=== PATIENT | female | born 1960 | race African-American/Black ===

== ENCOUNTER → 2016-08-07 | Outpatient (CLI) | payer OTHER ==
[~2016-08-07] MED LIST: AMLO5TAB2 PO; LOSA50TA PO
[2016-08-07 13:00] LABS: ALKALINE PHOSPHATASE 104 U/L (45-117); ALT (GPT) 22 U/L (10-53); ANION GAP 6 MEQ/L (5-15); AST (GOT) 9 U/L (15-37); BICARBONATE 29.3 MEQ/L (21.0-32.0); BLOOD UREA NITROGEN 14 MG/DL (7-18); CHLORIDE 104 MEQ/L (98-107); GLOMERULAR FILTRATION RATE 77 ML/MIN (>89); GLUCOSE,FASTING 90 MG/DL (74-99); HDL CHOLESTEROL 49.4 MG/DL (40.0-60.0); LDL CHOLESTEROL 149 MG/DL (0-99); POTASSIUM 3.8 MEQ/L (3.5-5.1); SODIUM (NA) 139 MEQ/L (136-145); TOTAL BILIRUBIN ADULT 0.5 MG/DL (0.2-1.0)
== END ==
LOC: CLAB 12:14
PROVIDERS: ATTEND Nurse Practitioner Family
DX: E78.5 Hyperlipidemia, unspecified (principal); I10 Essential (primary) hypertension; H92.01 Otalgia, right ear
CPT/HCPCS: 36415; 80053; 80061

== ENCOUNTER 2017-02-05 01:45 | Emergency (ER) | payer OTHER ==
[~2017-02-05] VITALS: Ht 175.3 cm; Wt 88.0 kg
[2017-02-05 01:50] VITALS: BP 226/91; PULSE 84; RESP 16; TEMP 98.6; O2SAT 95
[2017-02-05 02:09] VITALS: BP 221/101; PULSE 73; RESP 16; O2SAT 96
[2017-02-05] MEDS ORDERED: OMEP20TA PO (02:11)
[2017-02-05] MEDS ORDERED: NITR1SUB3 SL (02:11)
--- NOTE | 2017-02-05 02:19 | PD ---
HPI Chief Complaint: Foreign Body Time Seen by Provider: 02:14 Travel History International Travel<30 days: No Contact w/Intl Traveler<30days: No Traveled to known affect area: No History of Present Illness HPI 57-year-old female with history of hypertension here for evaluation of foreign body sensation in her right ear. The patient reports having this sensation for the last 6 months. She was evaluated by her primary care physician as well as ENT specialist Dr. Alfred who both told her that there is nothing in her ear. She states that over the last couple of days and especially tonight it feels as though there is something crawling in her ear. Of note she is supposed to be on amlodipine, however ran out of this medication 3 weeks ago. She is hypertensive in triage. She denies headache. No chest pain or dyspnea. No paresthesias or motor deficits. She is adamant that there is something in her ear and wants an x-ray for it. PFSH Past Medical History Asthma: No Chest Pain: Yes COPD: No Diabetes: No Diminished Hearing: No GERD: Yes Hypertension: Yes Immunizations Current: No Thyroid Disease: No Tetanus Vaccination: < 5 Years Influenza Vaccination: Yes ?: Not Menopausal: Yes Past Surgical History Surgical History: No Previous Surgery Social History Alcohol Use: Yes (OCC.) Tobacco Use: No Substance Use: No Allergies-Medications (Allergen,Severity, Reaction): Coded Allergies: No Known Allergies (Verified , 02/05/17) Reported Meds & Prescriptions Reported Meds & Active Scripts Active Amlodipine (Amlodipine Besylate) 5 Mg Tab 5 Mg PO DAILY Losartan (Losartan Potassium) 50 Mg Tab 50 Mg PO BID Reported Omeprazole 20 Mg Tab 20 Mg PO DAILY Nitroglycerin SL (Nitroglycerin) 0.4 Mg Subl 0.4 Mg SL DIRECTED PRN ONE TABLET UNDER THE TONGUE NEEDED FOR CHEST PAIN, MAY REPEAT EVERY FIVE MINUTES FOR A TOTAL OF 3 DOSES OR CALL 911 IF NO RELIEF Review of Systems Except as stated in HPI: all other systems reviewed are Neg Physical Exam Narrative GENERAL: Well-developed, well-nourished, comfortable, no apparent distress. SKIN: Focused skin assessment warm/dry. No rash. No pallor. HEAD: Atraumatic. Normocephalic. EYES: Pupils equal and round. No scleral icterus. No injection or drainage. ENT: Mucous membranes pink and moist. Bilateral tympanic membranes and external auditory canals are normal. There are no ear foreign bodies bilaterally. No perforations. NECK: Trachea midline. No JVD. CARDIOVASCULAR: Regular rate and rhythm. RESPIRATORY: No accessory muscle use. Clear to auscultation. Breath sounds equal bilaterally. GASTROINTESTINAL: Abdomen soft, non-tender, nondistended. MUSCULOSKELETAL: No obvious deformities. No clubbing. No cyanosis. No edema. NEUROLOGICAL: Awake and alert. No obvious cranial nerve deficits. Motor grossly within normal limits. Normal speech. PSYCHIATRIC: Appropriate mood and affect; insight and judgment normal. Data Data Last Documented VS Vital Signs Date Time Temp Pulse Resp B/P Pulse Ox O2 Delivery O2 Flow Rate FiO2 02/05/17 02:51 77 16 212/102 02/05/17 02:09 96 Room Air 02/05/17 01:[address] Brain W/O Iv Contrast(Rout) (02/05/17 ) Amlodipine (Norvasc) (02/05/17 02:30) Acetaminophen (Tylenol) (02/05/17 03:00) MDM Medical Decision Making Medical Screen Exam Complete: Yes Emergency Medical Condition: Yes Differential Diagnosis Tinnitus, foreign body/foreign body sensation, otitis media, otitis externa Narrative Course Initial vital signs show heart rate 84, blood pressure 226/91, pulse ox 95% on room air. CT head shows no acute intracranial disease. On physical exam there is no ear foreign body. Bilateral external auditory canals and tympanic members are normal. No signs of perforation. Patient was given a dose of amlodipine as well as a dose of Tylenol. Patient was made aware of all findings. On reassessment she is again resting comfortably. There are no focal neurologic findings on exam. She is not displaying any signs or symptoms of hypertensive crisis. Her symptoms have been going on for 6 months. I told her that she could be experiencing tenderness secondary to her elevated blood pressure. She does take aspirin daily, and he told her to stop doing so to see if her tinnitus would improve. She is stable for discharge home with outpatient follow-up with her primary care physician this week. She was informed on when to return to the emergency department. She verbalizes understanding and agreement with plan. Diagnosis Primary Impression: Tinnitus Qualified Code: H93.11 - Tinnitus, right Additional Impression: Elevated blood pressure reading Referrals: Primary Care Physician 3 days Additional Instructions: Follow-up with your primary care physician this week. Return to the emergency department for worsening symptoms or any other concerns. Scripts Amlodipine 10 Mg Tab10 Mg PO DAILY #30 TAB Ref 0 Prov:Burak Shelby MD 02/05/17 Disposition: 01 DISCHARGE HOME Condition: Stable Burak Shelby MD Feb 05, 2017 02:19
[2017-02-05 02:51] VITALS: BP 212/102; PULSE 77; RESP 16
[2017-02-05] MEDS ORDERED: ACETAMINOPHEN 325 MG TAB PO ONE (03:00)
--- NOTE | 2017-02-05 03:33 | RADRPT ---
EXAM DATE/TIME: 02/05/2017 02:28 [facility] COMPARISON: No previous studies available for comparison. INDICATIONS : Right ear and head pain. RADIATION DOSE: 56.35 CTDIvol (mGy) MEDICAL HISTORY : None SURGICAL HISTORY : None. ENCOUNTER: Initial ACUITY: 4 - 6 months PAIN SCALE: 4/10 LOCATION: Right cranial ear TECHNIQUE: Multiple contiguous axial images were obtained of the head. Using automated exposure control and adj ustment of the mA and/or kV according to patient size, radiation dose was kept as low as reasonably a chievable to obtain optimal diagnostic quality images. DICOM format image data is available electro nically for review and comparison. FINDINGS: CEREBRUM: The ventricles are normal for age. No evidence of midline shift, mass lesion, hemorrhage or acute in farction. No extra-axial fluid collections are seen. POSTERIOR FOSSA: The cerebellum and brainstem are intact. The 4th ventricle is midline. The cerebellopontine angle i s unremarkable. EXTRACRANIAL: The visualized portion of the orbits is intact. SKULL: The calvaria is intact. No evidence of skull fracture. CONCLUSION: No acute intracranial disease. Flavio Madden MD on February 05, 2017 at 3:30 Board Certified Radiologist. This report was verified electronically.
[2017-02-05] MEDS ORDERED: AMLO10TA2 PO (03:40)
[2017-02-05 03:43] VITALS: BP 212/97; PULSE 97; RESP 16; O2SAT 99
== END 2017-02-05 03:50 | disposition home or self-care (01) ==
LOC: NEPE 01:45
DX: H93.11 Tinnitus, right ear (principal); Z79.82 Long term (current) use of aspirin; I10 Essential (primary) hypertension; Z91.14 Patient's other noncompliance with medication regimen
CPT/HCPCS: 70450

== ENCOUNTER 2017-03-10 20:27 | Emergency (ER) | payer OTHER ==
[~2017-03-10] VITALS: Ht 165.1 cm; Wt 95.0 kg
[~2017-03-10 20:27] MED LIST changes: +AMLO10TA2 PO; +NITR1SUB3 SL; +OMEP20TA PO
[2017-03-10] MEDS ORDERED: SODIUM CHLORIDE 0.9% FLUSH 10 ML FLUSH IVF PRN (20:30)
[2017-03-10] MEDS ORDERED: ASPIRIN 81 MG CHEW TAB PO ONE (20:30)
[2017-03-10] MEDS ORDERED: MORPHINE SULFATE 4 MG/ML INJ IV PUSH ONE (20:30)
[2017-03-10] MEDS: NITROGLYCERIN 0.4 MG SL 25 TABS/BTL SL SCH ×3 (20:39→20:49)
[2017-03-10 20:44] VITALS: BP 149/72; PULSE 72; RESP 18; O2SAT 95
[2017-03-10 20:45] VITALS: BP_SYST 149; BP_SYST 177; BP_DIAS 72; BP_DIAS 84; PULSE 65; PULSE 72; RESP 18; TEMP 98.1; O2SAT 95; O2SAT 98
--- NOTE | 2017-03-10 20:50 | PD ---
HPI Chief Complaint: Chest Pain Time Seen by Provider: 20:29 Travel History International Travel<30 days: No Contact w/Intl Traveler<30days: No History of Present Illness HPI Patient is a 57-year-old obese female with history of HTN who presents the emergency department with complaint of chest pain. Patient states that at around 5:30 PM she developed a dull substernal ache/pressure. This does not radiate. She does have some associated shortness of breath but no cough, chest congestion. Denies any lightheadedness, dizziness, diaphoresis, nausea or vomiting. The chest pain has been constant since onset at 5:30 PM. Pain is 6 out of 10 at this time. Patient did take 3 sublingual nitroglycerin prior to arrival. She notes that she's been having this chest pain intermittently for the last 1-2 years. She states that movement, particularly movement of the left shoulder seems to reproduce the pain. She has been followed with Dr. Ruiz, who did a cardiac stress test approximately 9010 months ago that was reportedly normal per patient. [facility]LY [facility] Past Medical History Asthma: No Chest Pain: Yes COPD: No Diabetes: No Diminished Hearing: No GERD: Yes Hypertension: Yes Immunizations Current: No Thyroid Disease: No Menopausal: Yes Social History Alcohol Use: Yes (OCC.) Tobacco Use: No Substance Use: No Allergies-Medications (Allergen,Severity, Reaction): Coded Allergies: No Known Allergies (Verified , 02/05/17) Reported Meds & Prescriptions Reported Meds & Active Scripts Active Amlodipine (Amlodipine Besylate) 10 Mg Tab 10 Mg PO DAILY Amlodipine (Amlodipine Besylate) 5 Mg Tab 5 Mg PO DAILY Losartan (Losartan Potassium) 50 Mg Tab 50 Mg PO BID Reported Omeprazole 20 Mg Tab 20 Mg PO DAILY Nitroglycerin SL (Nitroglycerin) 0.4 Mg Subl 0.4 Mg SL DIRECTED PRN ONE TABLET UNDER THE TONGUE NEEDED FOR CHEST PAIN, MAY REPEAT EVERY FIVE MINUTES FOR A TOTAL OF 3 DOSES OR CALL 911 IF NO RELIEF Review of Systems Except as stated in HPI: all other systems reviewed are Neg Physical Exam Narrative GENERAL: Morbidly obese female appearing older than stated age , in no acute distress SKIN: Focused skin assessment warm/dry. HEAD: Normocephalic. EYES: No scleral icterus. No injection or drainage. ENT: Mucous membranes pink and moist. NECK: Supple CARDIOVASCULAR: Regular rate and rhythm. No murmur appreciated. No reproducible tenderness to palpation of the chest wall. RESPIRATORY: No accessory muscle use. Clear to auscultation. Breath sounds equal bilaterally. GASTROINTESTINAL: Abdomen soft, non-tender, nondistended. Morbidly obese MUSCULOSKELETAL: No obvious deformities. No edema. NEUROLOGICAL: Awake and alert. Motor grossly within normal limits. Normal speech. PSYCHIATRIC: Appropriate mood and affect; insight and judgment normal. Data Data Last Documented VS Vital Signs Date Time Temp Pulse Resp B/P Pulse Ox O2 Delivery O2 Flow Rate FiO2 03/10/17 23:06 60 18 190/87 99 Room Air 03/10/17 20:45 98.1 Orders Electrocardiogram (03/10/17 20:29) Basic Metabolic Panel (Bmp) (03/10/17 20:29) Ckmb (Isoenzyme) Profile (03/10/17 20:29) Complete Blood Count With Diff (03/10/17 20:29) Magnesium (Mg) (03/10/17 20:29) Prothrombin Time / Inr (Pt) (03/10/17 20:29) Act Partial Throm Time (Ptt) (03/10/17 20:29) Troponin I (03/10/17 20:29) Chest, Single Ap (03/10/17 20:29) Ecg Monitoring (03/10/17 20:29) Bilateral Bp Monitoring (03/10/17 20:29) Iv Access Insert/Monitor (03/10/17 20:29) Oximetry (03/10/17 20:29) Aspirin Chew (Aspirin Chew) (03/10/17 20:30) Morphine Inj (Morphine Inj) (03/10/17 20:30) Sodium Chloride 0.9% Flush (Ns Flush) (03/10/17 20:30) Nitroglycerin Sl (Nitrostat Sl) (03/10/17 20:30) CKMB (03/10/17 20:30) CKMB% (03/10/17 20:30) Troponin I (03/10/17 23:30) Electrocardiogram (03/10/17 23:30) Labs Laboratory Tests Test 03/10/17 03/10/17 20:30 23:34 White Blood Count 4.8 TH/MM3 Red Blood Count 4.13 MIL/MM3 Hemoglobin 12.7 GM/DL Hematocrit 37.7 % Mean Corpuscular Volume 91.3 FL Mean Corpuscular Hemoglobin 30.9 PG Mean Corpuscular Hemoglobin 33.8 % Concent Red Cell Distribution Width 14.0 % Platelet Count 173 TH/MM3 Mean Platelet Volume 10.4 FL Neutrophils (%) (Auto) 41.1 % Lymphocytes (%) (Auto) 47.0 % Monocytes (%) (Auto) 9.3 % Eosinophils (%) (Auto) 2.0 % Basophils (%) (Auto) 0.6 % Neutrophils # (Auto) 2.0 TH/MM3 Lymphocytes # (Auto) 2.3 TH/MM3 Monocytes # (Auto) 0.4 TH/MM3 Eosinophils # (Auto) 0.1 TH/MM3 Basophils # (Auto) 0.0 TH/MM3 CBC Comment DIFF FINAL Differential Comment Prothrombin Time 10.8 SEC Prothromb Time International 1.0 RATIO Ratio Activated Partial 25.8 SEC Thromboplast Time Sodium Level 139 MEQ/L Potassium Level 3.6 MEQ/L Chloride Level 105 MEQ/L Carbon Dioxide Level 25.7 MEQ/L Anion Gap 8 MEQ/L Blood Urea Nitrogen 16 MG/DL Creatinine 0.99 MG/DL Estimat Glomerular Filtration 70 ML/MIN Rate Random Glucose 97 MG/DL Calcium Level 8.3 MG/DL Magnesium Level 2.1 MG/DL Total Creatine Kinase 147 U/L Creatine Kinase MB 0.9 NG/ML Troponin I LESS THAN 0.02 LESS THAN 0.02 NG/ML NG/ML MDM Medical Decision Making Medical Screen Exam Complete: Yes Emergency Medical Condition: Yes Medical Record Reviewed: Yes Differential Diagnosis 57-year-old obese female with history of HTN, HLD here with complaint of substernal chest pressure with shortness of breath since 5:30 PM. Differential includes ACS, atypical chest pain, anxiety, GERD, musculoskeletal, and less likely PE or dissection. Narrative Course Patient placed on monitor, IV established and blood obtained. A twelve-lead EKG shows sinus rhythm with T-wave inversions in 3, V1. This is similar to patient's previous EKG. Patient was given aspirin, morphine, nitroglycerin. Portable chest x-ray obtained that by my read shows no acute abnormalities. CBC , BMP, magnesium, CK-MB, troponin, coags and unremarkable. After nitroglycerin 2 patient is pain-free in the chest and only has pain with movement of the left arm. Discussed admission for stress testing, serial cardiac enzymes but patient would really rather go home. Therefore we compromised and have her stay for delta 3 hour troponin and EKG. Delta 3 hour EKG is unchanged, troponin remains negative. Patient reassured, discharged home and instructed to follow-up with Dr. Ruiz as an outpatient. Diagnosis Primary Impression: Atypical chest pain Referrals: Ross Ruiz MD 1 day Additional Instructions: Follow-up with Dr. Ruiz as an outpatient as discussed. Call Dr. Ruiz's office tomorrow and inform them of your emergency department visit, and need for follow-up. EKG 2, cardiac enzymes 2 today were normal. Med/Other Pt SpecificInfo: No Change to Meds Disposition: 01 DISCHARGE HOME Condition: Stable Sammi Mcmanus MD Mar 10, 2017 20:50
[2017-03-10 21:00] VITALS: BP 145/70; PULSE 71; RESP 18; O2SAT 97
[2017-03-10 21:04] LABS: BASOPHIL % 0.6 % (0.0-2.0); EOSINOPHIL # 0.1 TH/MM3 (0-0.4); HEMATOCRIT 37.7 % (35.0-46.0); HEMO FLAGS DIFF FINAL; LYMPHOCYTE # 2.3 TH/MM3 (1.0-4.8); MEAN CELL VOLUME 91.3 FL (80.0-100.0); MEAN CORPUSCULAR HEMOGLOBIN 30.9 PG (27.0-34.0); MEAN CORPUSCULAR HGB CONC 33.8 % (32.0-36.0); MONO % 9.3 % (0.0-8.0); NEUT % 41.1 % (16.0-70.0); PLATELET COUNT 173 TH/MM3 (150-450); RED BLOOD COUNT 4.13 MIL/MM3 (4.00-5.30); WHITE BLOOD COUNT 4.8 TH/MM3 (4.0-11.0)
[2017-03-10 21:18] LABS: ANION GAP 8 MEQ/L (5-15); BICARBONATE 25.7 MEQ/L (21.0-32.0); BLOOD UREA NITROGEN 16 MG/DL (7-18); CHLORIDE 105 MEQ/L (98-107); GLOMERULAR FILTRATION RATE 70 ML/MIN (>89); MAGNESIUM 2.1 MG/DL (1.5-2.5); POTASSIUM 3.6 MEQ/L (3.5-5.1); SODIUM (NA) 139 MEQ/L (136-145)
[2017-03-10 21:20] LABS: APTT (PATIENT) 25.8 SEC (24.3-30.1); PROTHROMBIN TIME - PATIENT 10.8 SEC (9.8-11.6)
--- NOTE | 2017-03-10 21:21 | RADRPT ---
EXAM DATE/TIME: 03/10/2017 20:48 [facility] COMPARISON: CHEST SINGLE AP, March 02, 2015, 8:06. INDICATIONS : Chest pain. MEDICAL HISTORY : None. SURGICAL HISTORY : None. ENCOUNTER: Initial ACUITY: 1 day PAIN SCORE: 7/10 LOCATION: Bilateral chest FINDINGS: A single view of the chest demonstrates the lungs to be symmetrically aerated without evidence of mas s, infiltrate or effusion. Mild basal atelectasis. The cardiomediastinal contours are mildly prominen t. Osseous structures are intact. CONCLUSION: 1. Stable cardiomegaly. Mild basal atelectasis. Poncho Alva MD on March 10, 2017 at 21:19 Board Certified Radiologist. This report was verified electronically.
[2017-03-10 21:23] LABS: CREATINE KINASE 147 U/L (26-192)
[2017-03-10 21:35] LABS: CKMB 0.9 NG/ML (0.5-3.6)
[2017-03-10 22:25] VITALS: BP 155/75; PULSE 62; RESP 18; O2SAT 98
[2017-03-10 23:06] VITALS: BP 190/87; PULSE 60; RESP 18; O2SAT 99
[2017-03-11 01:07] VITALS: BP 155/75
--- NOTE | 2017-03-11 16:27 | EKG ---
Date Performed: 03/10/2017 Time Performed: 20:20:29 PTAGE: 57 years EKG: Sinus rhythm MODERATE INTRAVENTRICULAR CONDUCTION DELAY VOLTAGE CRITERIA FOR LVH ABNORMAL ECG PREVIOUS TRACING 03/02/2015 07.14.42 Since previous tracing, no significant change noted DOCTOR: Kailash Jalloh Interpretating Date/Time 03/11/2017 16:25:59
--- NOTE | 2017-03-11 16:27 | EKG ---
Date Performed: 03/10/2017 Time Performed: 23:38:16 PTAGE: 57 years EKG: SINUS BRADYCARDIA WITH SINUS ARRHYTHMIA MODERATE INTRAVENTRICULAR CONDUCTION DELAY VOLTAGE CRITERIA FOR LVH ABNORMAL ECG PREVIOUS TRACING : 03/10/2017 20.20 Since previous tracing, no significant change noted DOCTOR: Kailash Jalloh Interpretating Date/Time 03/11/2017 16:26:09
[2017-05-16] MEDS ORDERED: OMEP20TA PO ×2 (13:21→13:44)
[2017-05-16] MEDS ORDERED: LOSA50TA PO (13:39)
[2017-05-16] MEDS ORDERED: AMLO5TAB2 PO (13:39)
[2017-05-16] MEDS ORDERED: KETOC2%T TOPICAL (13:52)
[2017-05-17] MEDS ORDERED: ATOR20TA15 PO (15:26)
== END 2017-03-11 01:31 | disposition home or self-care (01) ==
LOC: NEPE 20:27
DX: R07.89 Other chest pain (principal); I10 Essential (primary) hypertension; K21.9 Gastro-esophageal reflux disease without esophagitis
CPT/HCPCS: 71010; 80048; 82550; 82552; 83735; 84484; 85025; 85610; 85730; 93005; 96374; 99285; J2270

== ENCOUNTER 2017-05-10 03:39 | Observation (INO) | payer OTHER ==
[~2017-05-10] VITALS: Ht 167.6 cm; Wt 100.0 kg
[2017-05-10] VITALS (7 sets, daily range): BP systolic 179–198; BP diastolic 87–97; PULSE 60–76; RESP 16–20; TEMP 97.6–98.2; O2SAT 96–100
[2017-05-10] MEDS ORDERED: SODIUM CHLORIDE 0.9% FLUSH 10 ML FLUSH IVF PRN (04:00)
--- NOTE | 2017-05-10 04:18 | RADRPT ---
EXAM DATE/TIME: 05/10/2017 03:59 [facility] COMPARISON: CHEST SINGLE AP, March 10, 2017, 20:48. INDICATIONS : Chest pain. MEDICAL HISTORY : Hypertension. SURGICAL HISTORY : None. ENCOUNTER: Initial ACUITY: 1 day PAIN SCORE: 6/10 LOCATION: Bilateral chest FINDINGS: A single view of the chest demonstrates the lungs to be symmetrically aerated without evidence of mas s, infiltrate or effusion. The cardiomediastinal contours are unremarkable. Osseous structures are intact. CONCLUSION: No acute disease. Robert Morin Jr., MD on May 10, 2017 at 4:16 Board Certified Radiologist. This report was verified electronically.
[2017-05-10 04:43] LABS: AUTOMATED NEUTROPHIL # 3.2 TH/MM3 (1.8-7.7); BASOPHIL % 0.4 % (0.0-2.0); EOSINOPHIL # 0.1 TH/MM3 (0-0.4); EOSINOPHIL % 1.2 % (0.0-4.0); HEMATOCRIT 36.2 % (35.0-46.0); HEMO FLAGS DIFF FINAL; LYMPH % 39.1 % (9.0-44.0); LYMPHOCYTE # 2.4 TH/MM3 (1.0-4.8); MEAN CELL VOLUME 91.9 FL (80.0-100.0); MEAN CORPUSCULAR HEMOGLOBIN 31.4 PG (27.0-34.0); MEAN CORPUSCULAR HGB CONC 34.2 % (32.0-36.0); MONO % 7.3 % (0.0-8.0); PLATELET COUNT 165 TH/MM3 (150-450); RED BLOOD COUNT 3.93 MIL/MM3 (4.00-5.30); RED CELL DISTRIBUTION WIDTH 14.6 % (11.6-17.2); WHITE BLOOD COUNT 6.2 TH/MM3 (4.0-11.0)
[2017-05-10 04:53] LABS: PROTHROMBIN TIME - PATIENT 10.8 SEC (9.8-11.6)
[2017-05-10 04:57] LABS: ALT (GPT) 27 U/L (10-53); ANION GAP 6 MEQ/L (5-15); AST (GOT) 14 U/L (15-37); BICARBONATE 26.6 MEQ/L (21.0-32.0); BLOOD UREA NITROGEN 14 MG/DL (7-18); CHLORIDE 108 MEQ/L (98-107); GLOMERULAR FILTRATION RATE 70 ML/MIN (>89); POTASSIUM 3.4 MEQ/L (3.5-5.1); SODIUM (NA) 141 MEQ/L (136-145)
--- NOTE | 2017-05-10 04:58 | PD ---
HPI Chief Complaint: Chest Pain Time Seen by Provider: 03:56 Travel History International Travel<30 days: No Contact w/Intl Traveler<30days: No Traveled to known affect area: No History of Present Illness HPI Patient is a 57-year-old female who presents to emergency room with complaints of chest pain. Patient reports that she was working tonight, reports that she began to have chest pain which started around 3:30 AM. She reports that she has a pressure to her left chest, reports that symptoms are nonradiating in nature. Patient reports that she has nausea with no vomiting or diaphoresis or symptoms. It's that she is currently being treated for hypertension and hyperlipidemia with Dr. Ruiz. Reports that she keeps having intermittent chest pains, her instructional design manager did send her for a stress test on March 07, 2017 - patient was told that stress test was negative PENDING SALE TO [facility] Past Medical History Asthma: No Chest Pain: Yes COPD: No Diabetes: No Diminished Hearing: No GERD: Yes Hypertension: Yes Immunizations Current: No Thyroid Disease: No ?: Not Menopausal: Yes Past Surgical History Surgical History: No Previous Surgery Section: Yes (x1) Social History Alcohol Use: Yes (OCC.) Tobacco Use: No Substance Use: No Allergies-Medications (Allergen,Severity, Reaction): Coded Allergies: No Known Allergies (Verified , 05/10/17) Reported Meds & Prescriptions Reported Meds & Active Scripts Active Amlodipine (Amlodipine Besylate) 5 Mg Tab 5 Mg PO DAILY Losartan (Losartan Potassium) 50 Mg Tab 50 Mg PO BID Reported Omeprazole 20 Mg Tab 20 Mg PO DAILY Nitroglycerin SL (Nitroglycerin) 0.4 Mg Subl 0.4 Mg SL DIRECTED PRN ONE TABLET UNDER THE TONGUE NEEDED FOR CHEST PAIN, MAY REPEAT EVERY FIVE MINUTES FOR A TOTAL OF 3 DOSES OR CALL 911 IF NO RELIEF Review of Systems General / Constitutional: No: Fever Eyes: No: Visual changes HENT: No: Headaches Cardiovascular: Positive: Chest Pain or Discomfort Respiratory: No: Shortness of Breath Gastrointestinal: No: Abdominal Pain Genitourinary: No: Dysuria Musculoskeletal: No: Pain Skin: No Rash Neurologic: No: Weakness Psychiatric: No: Depression Endocrine: No: Polydipsia Hematologic/Lymphatic: No: Easy Bruising Physical Exam Narrative GENERAL: mild distress SKIN: Focused skin assessment warm/dry. HEAD: Atraumatic. Normocephalic. EYES: Pupils equal and round. No scleral icterus. No injection or drainage. ENT: No nasal bleeding or discharge. Mucous membranes pink and moist. NECK: Trachea midline. No JVD. CARDIOVASCULAR: Regular rate and rhythm. No murmur appreciated. RESPIRATORY: No accessory muscle use. Clear to auscultation. Breath sounds equal bilaterally. GASTROINTESTINAL: Abdomen soft, non-tender, nondistended. Hepatic and splenic margins not palpable. MUSCULOSKELETAL: No obvious deformities. No clubbing. No cyanosis. No edema. NEUROLOGICAL: Awake and alert. No obvious cranial nerve deficits. Motor grossly within normal limits. Normal speech. PSYCHIATRIC: Appropriate mood and affect; insight and judgment normal. Data Data Last Documented VS Vital Signs Date Time Temp Pulse Resp B/P (MAP) Pulse Ox O2 Delivery O2 Flow Rate FiO2 05/10/17 04:33 73 20 197/87 (123) 99 Room Air 05/10/17 04:06 98.2 Orders Orders Electrocardiogram (05/10/17 03:57) B-Type Natriuretic Peptide (05/10/17 03:57) Ckmb (Isoenzyme) Profile (05/10/17 03:57) Complete Blood Count With Diff (05/10/17 03:57) Comprehensive Metabolic Panel (05/10/17 03:57) Magnesium (Mg) (05/10/17 03:57) Prothrombin Time / Inr (Pt) (05/10/17 03:57) Act Partial Throm Time (Ptt) (05/10/17 03:57) Troponin I (05/10/17 03:57) Lipase (05/10/17 03:57) Chest, Single Ap (05/10/17 03:57) Ecg Monitoring (05/10/17 03:57) Iv Access Insert/Monitor (05/10/17 03:57) Oximetry (05/10/17 03:57) Sodium Chloride 0.9% Flush (Ns Flush) (05/10/17 04:00) Morphine Inj (Morphine Inj) (05/10/17 05:00) CKMB (05/10/17 04:20) CKMB% (05/10/17 04:20) Potassium Chloride (Kcl) (05/10/17 05:15) Admit Order (Ed Use Only) (05/10/17 05:13) Activity Bed Rest With Brp (05/10/17 05:13) Vital Signs (Adult) Q4H (05/10/17 05:13) Cardiac Rhythm .As Directed (05/10/17 05:13) Notify Dr: Other .PRN (05/10/17 05:13) Notify DrSelin Parameters (05/10/17 05:13) Ckmb (Isoenzyme) Profile (05/10/17 07:20) Ckmb (Isoenzyme) Profile (05/10/17 10:20) Troponin I (05/10/17 07:20) Troponin I (05/10/17 10:20) Electrocardiogram (05/10/17 05:13) Electrocardiogram (05/10/17 08:13) ^ Obtain (05/10/17 05:13) Flight Operations Dispatch Clerk / Telemetry GREGORIO.Q8H (05/10/17 05:13) Labs Laboratory Tests Test 05/10/17 04:20 White Blood Count 6.2 TH/MM3 Red Blood Count 3.93 MIL/MM3 Hemoglobin 12.4 GM/DL Hematocrit 36.2 % Mean Corpuscular Volume 91.9 FL Mean Corpuscular Hemoglobin 31.4 PG Mean Corpuscular Hemoglobin Concent 34.2 % Red Cell Distribution Width 14.6 % Platelet Count 165 TH/MM3 Mean Platelet Volume 10.9 FL Neutrophils (%) (Auto) 52.0 % Lymphocytes (%) (Auto) 39.1 % Monocytes (%) (Auto) 7.3 % Eosinophils (%) (Auto) 1.2 % Basophils (%) (Auto) 0.4 % Neutrophils # (Auto) 3.2 TH/MM3 Lymphocytes # (Auto) 2.4 TH/MM3 Monocytes # (Auto) 0.4 TH/MM3 Eosinophils # (Auto) 0.1 TH/MM3 Basophils # (Auto) 0.0 TH/MM3 CBC Comment DIFF FINAL Differential Comment Prothrombin Time 10.8 SEC Prothromb Time International Ratio 1.0 RATIO Activated Partial Thromboplast Time 25.0 SEC Blood Urea Nitrogen 14 MG/DL Creatinine 0.99 MG/DL Random Glucose 130 MG/DL Total Protein 7.7 GM/DL Albumin 3.6 GM/DL Calcium Level 7.9 MG/DL Magnesium Level 2.0 MG/DL Alkaline Phosphatase 102 U/L Aspartate Amino Transf (AST/SGOT) 14 U/L Alanine Aminotransferase (ALT/SGPT) 27 U/L Total Bilirubin 0.2 MG/DL Sodium Level 141 MEQ/L Potassium Level 3.4 MEQ/L Chloride Level 108 MEQ/L Carbon Dioxide Level 26.6 MEQ/L Anion Gap 6 MEQ/L Estimat Glomerular Filtration Rate 70 ML/MIN Total Creatine Kinase 161 U/L Creatine Kinase MB 1.2 NG/ML Troponin I LESS THAN 0.02 NG/ML B-Type Natriuretic Peptide LESS THAN 2 PG/ML Lipase 91 U/L MDM Medical Decision Making Medical Screen Exam Complete: Yes Emergency Medical Condition: Yes Medical Record Reviewed: Yes Interpretation(s) ekg at 0410: NSR at 78bpm, qt/qtc: 390/423, patient with t wave inversion anteriorlateral leads, there are ekg changes when compared to ekg from 03/10/17 Vital Signs Date Time Temp Pulse Resp B/P (MAP) Pulse Ox O2 Delivery O2 Flow Rate FiO2 05/10/17 04:33 73 20 197/87 (123) 99 Room Air 05/10/17 04:33 72 99 Room Air 05/10/17 04:25 70 20 194/97 (129) 98 Room Air 05/10/17 04:06 98.2 76 18 188/91 (123) 97 Differential Diagnosis Differential includes arrhythmia, unstable angina, ACS, electrolyte abnormality Narrative Course Patient was placed on a associate chief nurse upon arrival to the emergency room. Patient reports that she took 2 sublingual nitroglycerin prior to coming to the ER, no relief of symptoms was a little nitroglycerin. IV morphine ordered for pain. Lab work including cardiac enzymes and x-ray chest ordered. Aspirin was administered to patient. Vital Signs Date Time Temp Pulse Resp B/P (MAP) Pulse Ox O2 Delivery O2 Flow Rate FiO2 05/10/17 04:33 73 20 197/87 (123) 99 Room Air 05/10/17 04:33 72 99 Room Air 05/10/17 04:25 70 20 194/97 (129) 98 Room Air 05/10/17 04:06 98.2 76 18 188/91 (123) 97 Laboratory Tests Test 05/10/17 04:20 White Blood Count 6.2 TH/MM3 (4.0-11.0) Red Blood Count 3.93 MIL/MM3 (4.00-5.30) Hemoglobin 12.4 GM/DL (11.6-15.3) Hematocrit 36.2 % (35.0-46.0) Mean Corpuscular Volume 91.9 FL (80.0-100.0) Mean Corpuscular Hemoglobin 31.4 PG (27.0-34.0) Mean Corpuscular Hemoglobin Concent 34.2 % (32.0-36.0) Red Cell Distribution Width 14.6 % (11.6-17.2) Platelet Count 165 TH/MM3 (150-450) Mean Platelet Volume 10.9 FL (7.0-11.0) Neutrophils (%) (Auto) 52.0 % (16.0-70.0) Lymphocytes (%) (Auto) 39.1 % (9.0-44.0) Monocytes (%) (Auto) 7.3 % (0.0-8.0) Eosinophils (%) (Auto) 1.2 % (0.0-4.0) Basophils (%) (Auto) 0.4 % (0.0-2.0) Neutrophils # (Auto) 3.2 TH/MM3 (1.8-7.7) Lymphocytes # (Auto) 2.4 TH/MM3 (1.0-4.8) Monocytes # (Auto) 0.4 TH/MM3 (0-0.9) Eosinophils # (Auto) 0.1 TH/MM3 (0-0.4) Basophils # (Auto) 0.0 TH/MM3 (0-0.2) CBC Comment DIFF FINAL Differential Comment Prothrombin Time 10.8 SEC (9.8-11.6) Prothromb Time International Ratio 1.0 RATIO Activated Partial Thromboplast Time 25.0 SEC (24.3-30.1) Blood Urea Nitrogen 14 MG/DL (7-18) Creatinine 0.99 MG/DL (0.50-1.00) Random Glucose 130 MG/DL (74-106) Total Protein 7.7 GM/DL (6.4-8.2) Albumin 3.6 GM/DL (3.4-5.0) Calcium Level 7.9 MG/DL (8.5-10.1) Magnesium Level 2.0 MG/DL (1.5-2.5) Alkaline Phosphatase 102 U/L (45-117) Aspartate Amino Transf (AST/SGOT) 14 U/L (15-37) Alanine Aminotransferase (ALT/SGPT) 27 U/L (10-53) Total Bilirubin 0.2 MG/DL (0.2-1.0) Sodium Level 141 MEQ/L (136-145) Potassium Level 3.4 MEQ/L (3.5-5.1) Chloride Level 108 MEQ/L (98-107) Carbon Dioxide Level 26.6 MEQ/L (21.0-32.0) Anion Gap 6 MEQ/L (5-15) Estimat Glomerular Filtration Rate 70 ML/MIN (>89) Total Creatine Kinase 161 U/L (26-192) Creatine Kinase MB 1.2 NG/ML (0.5-3.6) Troponin I LESS THAN 0.02 NG/ML B-Type Natriuretic Peptide LESS THAN 2 PG/ML (0-100) Lipase 91 U/L (73-393) Last Impressions Chest X-Ray 05/10/17 3644 Signed Impressions: Service Date/Time: Wednesday, May 10, 2017 03:59 - CONCLUSION: No acute disease. Robert Morin Jr., MD Patient currently chest pain free at this time. Will obs to CDU Diagnosis Primary Impression: chest pain Admitting Information Admitting Physician Requests: Observation Asia Savage DO May 10, 2017 04:58
[2017-05-10] MEDS ORDERED: MORPHINE SULFATE 4 MG/ML INJ IV PUSH ONE (05:00)
[2017-05-10 05:02] LABS: ALKALINE PHOSPHATASE 102 U/L (45-117); CREATINE KINASE 161 U/L (26-192); TOTAL BILIRUBIN ADULT 0.2 MG/DL (0.2-1.0)
[2017-05-10 05:14] LABS: CKMB 1.2 NG/ML (0.5-3.6)
[2017-05-10] MEDS ORDERED: POTASSIUM CHLORIDE 10 MEQ CONTROLLED RELEASE TAB PO ONE (05:15)
[2017-05-10] MEDS ORDERED: ASPIRIN 81 MG CHEW TAB PO ONE (05:30)
[2017-05-10] MEDS ORDERED: amLODIPine BESYLATE 5 MG TAB PO SCH (09:00)
[2017-05-10] MEDS ORDERED: LOSARTAN 50 MG TAB PO SCH (09:00)
[2017-05-10] MEDS ORDERED: PANTOPRAZOLE SOD 20 MG DELAYED RELEASE TAB PO SCH (09:00)
--- NOTE | 2017-05-10 09:01 | HHI.HP ---
HPI Primary Care Physician BALAJI Palma Chief Complaint Chest pain History of Present Illness Ms. Guzman is a 57-year-old female patient with a known medical history of hypertension and GERD who presented to the ED with complaints of chest pain. 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 She states that the pain started around 0330 in the morning, located in the middle of her chest with radiation to the left side of chest, 6/10 on pain scale at its worse, noticed that activity made it worse, and admits to associated shortness of breath and nausea. Denies any associated diaphoresis. Patient states that when she noticed this pain she sat down and took 2 Nitroglycerin tablets with no relief of pain. She came to the ED, was given Morphine and the pain has resolved. Patient sees Dr. Ruiz in the outpatient setting and was last seen in March for similar symptoms and a chemical stress test was performed which was negative. Denies any recent illness including fever, chills, cough, abdominal pain, vomiting, or diarrhea. Review of Systems Consitutional: DENIES: Fever, Chills Respiratory: COMPLAINS OF: Shortness of breath, DENIES: Cough Cardiovascular: COMPLAINS OF: See HPI, Chest pain, DENIES: Palpitations Gastrointestinal: COMPLAINS OF: Nausea, DENIES: Vomiting Past Family Social History Allergies: Coded Allergies: No Known Allergies (Verified , 05/10/17) Past Medical History Hypertension Hyperlipidemia GERD Chronic knee pain Past Surgical History . Reported Medications Active Amlodipine (Amlodipine Besylate) 5 Mg Tab 5 Mg PO DAILY Losartan (Losartan Potassium) 50 Mg Tab 50 Mg PO BID Reported Omeprazole 20 Mg Tab 20 Mg PO DAILY Nitroglycerin SL (Nitroglycerin) 0.4 Mg Subl 0.4 Mg SL DIRECTED PRN ONE TABLET UNDER THE TONGUE NEEDED FOR CHEST PAIN, MAY REPEAT EVERY FIVE MINUTES FOR A TOTAL OF 3 DOSES OR CALL 911 IF NO RELIEF Active Ordered Medications Current Medications Medications (Trade) Dose Ordered Sig/Ally Route Start Time Stop Time Status Last Admin (NS Flush) 2 ml UNSCH PRN IVF 05/10/17 04:00 05/10/17 06:00 (Norvasc) 5 mg DAILY PO 05/10/17 09:00 (Cozaar) 50 mg BID PO 05/10/17 09:00 (Protonix) 20 mg DAILY PO 05/10/17 09:00 Family History Maternal and paternal medical history significant for hypertension. Social History Denies any tobacco use. Admits to occasional social alcohol use. Denies any illicit drug use. Physical Exam Vital Signs Vital Signs Date Time Temp Pulse Resp B/P (MAP) Pulse Ox O2 Delivery O2 Flow Rate FiO2 05/10/17 04:33 73 20 197/87 (123) 99 Room Air 05/10/17 04:33 72 99 Room Air 05/10/17 04:25 70 20 194/97 (129) 98 Room Air 05/10/17 04:06 98.2 76 18 188/91 (123) 97 Physical Exam GENERAL: This is a well-nourished, well-developed patient, in no apparent distress. Patient speaks in clear complete sentences. Patient is pleasant. HEENT: Head is atraumatic and normocephalic. Neck is supple without lymphadenopathy and trachea is midline. No JVD or carotid bruits. CARDIOVASCULAR: Regular rate and rhythm without murmurs, gallops, or rubs. RESPIRATORY: Clear to auscultation. Breath sounds equal bilaterally. No wheezes , rales, or rhonchi. No use of accessory muscles. GASTROINTESTINAL: Abdomen is nontender, nondistended. Abdomen soft. No obvious pulsatile mass or bruit. No CVA tenderness. Strong femoral pulses bilaterally. Normal bowel sounds in all quadrants. MUSCULOSKELETAL: Patient is moving upper and lower extremities freely. No calf tenderness or edema, no Homans sign. Strong pulses in upper and lower extremities. NEUROLOGICAL: Patient is alert and oriented. Cranial nerves 2-12 are grossly intact. No focal deficits and speech is clear. SKIN: No rash and turgor is normal. Laboratory Laboratory Tests Test 05/10/17 04:20 05/10/17 08:15 White Blood Count 6.2 Red Blood Count 3.93 Hemoglobin 12.4 Hematocrit 36.2 Mean Corpuscular Volume 91.9 Mean Corpuscular Hemoglobin 31.4 Mean Corpuscular Hemoglobin Concent 34.2 Red Cell Distribution Width 14.6 Platelet Count 165 Mean Platelet Volume 10.9 Neutrophils (%) (Auto) 52.0 Lymphocytes (%) (Auto) 39.1 Monocytes (%) (Auto) 7.3 Eosinophils (%) (Auto) 1.2 Basophils (%) (Auto) 0.4 Neutrophils # (Auto) 3.2 Lymphocytes # (Auto) 2.4 Monocytes # (Auto) 0.4 Eosinophils # (Auto) 0.1 Basophils # (Auto) 0.0 CBC Comment DIFF FINAL Differential Comment Prothrombin Time 10.8 Prothromb Time International Ratio 1.0 Activated Partial Thromboplast Time 25.0 Blood Urea Nitrogen 14 Creatinine 0.99 Random Glucose 130 Total Protein 7.7 Albumin 3.6 Calcium Level 7.9 Magnesium Level 2.0 Alkaline Phosphatase 102 Aspartate Amino Transf (AST/SGOT) 14 Alanine Aminotransferase (ALT/SGPT) 27 Total Bilirubin 0.2 Sodium Level 141 Potassium Level 3.4 Chloride Level 108 Carbon Dioxide Level 26.6 Anion Gap 6 Estimat Glomerular Filtration Rate 70 Total Creatine Kinase 161 Creatine Kinase MB 1.2 Troponin I LESS THAN 0.02 B-Type Natriuretic Peptide LESS THAN 2 Lipase 91 Result Diagram: 05/10/1741905/10/17419 Imaging Last Impressions Chest X-Ray 05/10/17 0357 Signed Impressions: Service Date/Time: Wednesday, May 10, 2017 03:59 - CONCLUSION: No acute disease. MD Ish Desai Jr. VTE Risk Assessment Caprini VTE Risk Assessment: No/Low Risk (score <= 1) Caprini Risk Assessment Model Point Value = 1 Point Value = 2 Point Value = 3 Point Value = 5 Age 41-60 Minor surgery BMI > 25 kg/m2 Swollen legs Varicose veins or History of unexplained or recurrent spontaneous Oral contraceptives or hormone replacement Sepsis (< 1 month) Serious lung disease, including pneumonia (< 1 month) Abnormal pulmonary function Acute myocardial infarction Congestive heart failure (< 1 month) History of inflammatory bowel disease Medical patient at bed rest Age 61-74 Arthroscopic surgery Major open surgery (> 45 min) Laparoscopic surgery (> 45 min) Malignancy Confined to bed (> 72 hours) Immobilizing plaster cast Central venous access Age >= 75 History of VTE Family history of VTE Factor V Leiden Prothrombin [id number] Lupus anticoagulant Anticardiolipin antibodies Elevated serum homocysteine Heparin-induced thrombocytopenia Other congenital or acquired thrombophilia Stroke (< 1 month) Elective arthroplasty Hip, pelvis, or leg fracture Acute spinal cord injury (< 1 month) Prophylaxis Regimen Total Risk Factor Score Risk Level Prophylaxis Regimen 0-1 Low Early ambulation 2 Moderate Order ONE of the following: *Sequential Compression Device (SCD) *Heparin 5000 units SQ BID 3-4 Higher Order ONE of the following medications: *Heparin 5000 units SQ TID *Enoxaparin/Lovenox 40 mg SQ daily (WT < 150 kg, CrCl > 30 mL/min) *Enoxaparin/Lovenox 30 mg SQ daily (WT < 150 kg, CrCl > 10-29 mL/min) *Enoxaparin/Lovenox 30 mg SQ BID (WT < 150 kg, CrCl > 30 mL/min) AND/OR *Sequential Compression Device (SCD) 5 or more Highest Order ONE of the following medications: *Heparin 5000 units SQ TID (Preferred with Epidurals) *Enoxaparin/Lovenox 40 mg SQ daily (WT < 150 kg, CrCl > 30 mL/min) *Enoxaparin/Lovenox 30 mg SQ daily (WT < 150 kg, CrCl > 10-29 mL/min) *Enoxaparin/Lovenox 30 mg SQ BID (WT < 150 kg, CrCl > 30 mL/min) AND *Sequential Compression Device (SCD) Assessment and Plan Assessment and Plan * Chest pain: Serial EKGs and troponins have been ordered for ruling out purposes. Will be seen by Dr. Zavaleta in the chest pain center. I did speak with her wired sweatband cutter Dr. Ruiz who recommends another chemical stress test. Patient has a history of chronic knee pain and is refusing a treadmill test at this time. * Hypokalemia: K 3.4, replacement given in ED. Follow BMP. * Hypertension: Continue current medication, Losartan and Norvasc. Monitor BP trend. * Hyperlipidemia: She is not currently taking any medication at this time and will need to discuss this with her PCP in the outpatient setting. * GERD: Protonix 20 mg PO daily. Patient is stable at this time and agreeable to the plan. Haresh Peoples May 10, 2017 09:01
[2017-05-10 09:09] LABS: CREATINE KINASE 147 U/L (26-192)
[2017-05-10 09:22] LABS: CKMB 1.2 NG/ML (0.5-3.6)
[2017-05-10 10:38] LABS: CREATINE KINASE 153 U/L (26-192)
[2017-05-10] MEDS ORDERED: REGADENOSON INJ 0.4 MG/5 ML SYR ONE (11:35)
--- NOTE | 2017-05-10 13:11 | RADRPT ---
EXAM DATE/TIME: 05/10/2017 11:03 [facility] COMPARISON: No previous studies available for comparison. INDICATIONS : Mid chest pain for one day. Angina. DOSE: 35 mCi Tc99m Myoview at stress. 11 mCi Tc99m Myoview at rest. 0.4 mg Lexiscan STRESS SYMPTOMS: Shortness of breath, chest tightness. EJECTION FRACTION: 54% MEDICAL HISTORY : Hypertension. Gastroesophageal reflux disease. SURGICAL HISTORY : section. ENCOUNTER: Initial ACUITY: 1 day PAIN SCALE: 6/10 LOCATION: Midsternal chest TECHNIQUE: The patient underwent pharmacologic stress with infusion of prescribed dose. Continuous ECG tracing was monitored during stress. Gated SPECT imaging was performed after stress and conventional SPECT i maging was performed at rest. The examination was performed on a SPECT/CT scanner, both attenuation and non-corrected datasets were reviewed. FINDINGS: DISTRIBUTION: The maximum perfused segment at stress is in the anterolateral wall. PERFUSION STUDY: The pattern of perfusion at stress is within normal limits with regional variations perfusion within 30%. The size of left ventricular cavity is similar between stress and rest, no evidence of redistrib ution, and summed stress score is 3.. GATED STUDY: There is intact wall motion and thickening without hypokinetic or dyskinetic segments. CONCLUSION: 1. No evidence of stress-induced ischemia. 2. Intact wall motion 54% ejection fraction. RISK CATEGORY: Low (<1% Annual Mortality Rate) Robert Islas MD on May 10, 2017 at 13:08 Board Certified Radiologist. This report was verified electronically.
--- NOTE | 2017-05-10 13:53 | HHI.DCPOC ---
Discharge Care Plan Diagnosis: (1) Chest pain (2) GERD (gastroesophageal reflux disease) (3) Hypertension Goals to Promote Your Health * To prevent worsening of your condition and complications * To maintain your health at the optimal level Directions to Meet Your Goals Take your medications as prescribed Follow your dietary instruction Follow activity as directed Keep your appointments as scheduled Take your immunizations and boosters as scheduled If your symptoms worsen call your PCP, if no PCP go to Urgent Care Center or Emergency Room Smoking is Dangerous to Your Health. Avoid second hand smoke Call the 24-hour hour crisis hotline for domestic abuse at Haresh Peoples May 10, 2017 13:53
--- NOTE | 2017-05-10 15:01 | TR ---
Date Performed: 05/10/2017 Time Performed: 11:38:08 DOCTOR: Frna Zavaleta DRUG LIST: CLINICAL HISTORY: ANGINA REASON FOR TEST: REASON FOR ENDING: OBSERVATION: CONCLUSION: Lexiscan stress test was performed under standard four minute protocol. Radionuclid e was injected one minute prior to ending the test. No electrocardiographic abormalities were present to suggest ischemia. Nuclear imaging and interpretation are pending. COMMENTS:
--- NOTE | 2017-05-10 15:11 | EKG ---
Date Performed: 05/10/2017 Time Performed: 04:10:35 PTAGE: 57 years EKG: Sinus rhythm VOLTAGE CRITERIA FOR LVH MODERATE T-WAVE ABNORMALITY, CONSIDER ANTEROLATERAL ISCHEMIA ABNORMAL ECG PREVIOUS TRACING : 03/10/2017 23.38 Since previous tracing, no significant change noted DOCTOR: Fran Zavaleta Interpretating Date/Time 05/10/2017 15:10:31
--- NOTE | 2017-05-10 15:11 | EKG ---
Date Performed: 05/10/2017 Time Performed: 07:44:28 PTAGE: 57 years EKG: Sinus rhythm VOLTAGE CRITERIA FOR LVH NONSPECIFIC T-WAVE ABNORMALITY ABNORMAL ECG PREVIOUS TRACING : 05/10/2017 04.10 Since previous tracing, no significant change noted DOCTOR: Fran Zavaleta Interpretating Date/Time 05/10/2017 15:09:45
--- NOTE | 2017-05-10 15:21 | EKG ---
Date Performed: 05/10/2017 Time Performed: 10:17:06 PTAGE: 57 years EKG: Sinus rhythm VOLTAGE CRITERIA FOR LVH NONSPECIFIC T-WAVE ABNORMALITY ABNORMAL ECG Since PREVIOUS TRACING , no significant change noted DOCTOR: Fran Zavaleta Interpretating Date/Time 05/10/2017 15:20:38
[2017-05-16] MEDS ORDERED: OMEP20TA PO ×2 (13:21→13:44)
[2017-05-16] MEDS ORDERED: AMLO5TAB2 PO (13:39)
[2017-05-16] MEDS ORDERED: LOSA50TA PO (13:39)
[2017-05-16] MEDS ORDERED: KETOC2%T TOPICAL (13:52)
[2017-05-17] MEDS ORDERED: ATOR20TA15 PO (15:26)
== END 2017-05-10 14:37 | disposition home or self-care (01) ==
LOC: NEPC 03:39 → NEDA 05:16 → NEPFCDU 09:54
PROVIDERS: ADMIT Internal Medicine Interventional Cardiology; ATTEND Internal Medicine Interventional Cardiology
DX: R07.9 Chest pain, unspecified (principal); I10 Essential (primary) hypertension; R94.31 Abnormal electrocardiogram [ECG] [EKG]; E87.6 Hypokalemia; E78.5 Hyperlipidemia, unspecified; K21.9 Gastro-esophageal reflux disease without esophagitis
CPT/HCPCS: 71010; 78452; 80053; 82550; 82552; 83690; 83735; 83880; 84484; 85025; 85610; 85730; 93005; 93017; 96374; 99285; A9502; G0378; J2270; J2785

== ENCOUNTER → 2017-05-23 | Outpatient (CLI) | payer OTHER ==
[~2017-05-23] MED LIST changes: -AMLO10TA2 PO; +ATOR20TA15 PO; +KETOC2%T TOPICAL
[2017-05-23 11:18] LABS: ANION GAP 6 MEQ/L (5-15); AST (GOT) 13 U/L (15-37); BICARBONATE 28.5 MEQ/L (21.0-32.0); BLOOD UREA NITROGEN 12 MG/DL (7-18); CHLORIDE 105 MEQ/L (98-107); GLOMERULAR FILTRATION RATE 77 ML/MIN (>89); GLUCOSE,FASTING 98 MG/DL (74-99); POTASSIUM 3.8 MEQ/L (3.5-5.1); SODIUM (NA) 139 MEQ/L (136-145)
[2017-05-23 11:22] LABS: ALKALINE PHOSPHATASE 99 U/L (45-117); ALT (GPT) 26 U/L (10-53); TOTAL BILIRUBIN ADULT 0.4 MG/DL (0.2-1.0)
== END ==
LOC: CLAB 10:17
PROVIDERS: ATTEND Nurse Practitioner Family
DX: E78.2 Mixed hyperlipidemia (principal); E87.6 Hypokalemia
CPT/HCPCS: 36415; 80053

== ENCOUNTER → 2017-10-30 | Outpatient (CLI) | payer OTHER ==
[~2017-10-30] MED LIST changes: -OMEP20TA PO; +OMEP20TA93 PO
[2017-10-30 08:01] LABS: AUTOMATED NEUTROPHIL # 2.8 TH/MM3 (1.8-7.7); BASOPHIL % 0.3 % (0.0-2.0); EOSINOPHIL # 0.1 TH/MM3 (0-0.4); EOSINOPHIL % 1.8 % (0.0-4.0); HEMATOCRIT 36.8 % (35.0-46.0); HEMOGLOBIN 12.3 GM/DL (11.6-15.3); LYMPH % 37.7 % (9.0-44.0); MEAN CELL VOLUME 92.3 FL (80.0-100.0); MEAN CORPUSCULAR HGB CONC 33.5 % (32.0-36.0); MEAN PLATELET VOLUME 10.9 FL (7.0-11.0); MONO % 7.6 % (0.0-8.0); MONOCYTE # 0.4 TH/MM3 (0-0.9); NEUT % 52.6 % (16.0-70.0); PLATELET COUNT 169 TH/MM3 (150-450); RED BLOOD COUNT 3.99 MIL/MM3 (4.00-5.30); RED CELL DISTRIBUTION WIDTH 14.5 % (11.6-17.2); WHITE BLOOD COUNT 5.4 TH/MM3 (4.0-11.0)
[2017-10-30 08:22] LABS: ALBUMIN 3.9 GM/DL (3.4-5.0); AST (GOT) 22 U/L (15-37); BICARBONATE 27.4 MEQ/L (21.0-32.0); BLOOD UREA NITROGEN 18 MG/DL (7-18); CALCIUM 8.6 MG/DL (8.5-10.1); CHLORIDE 108 MEQ/L (98-107); CREATININE 1.08 MG/DL (0.50-1.00); GLOMERULAR FILTRATION RATE 64 ML/MIN (>89); GLUCOSE,FASTING 104 MG/DL (74-99); SODIUM (NA) 141 MEQ/L (136-145)
[2017-10-30 08:23] LABS: ALT (GPT) 33 U/L (10-53)
[2017-10-30 08:25] LABS: ALKALINE PHOSPHATASE 102 U/L (45-117); CHOLESTEROL/ HDL RATIO 3.46 RATIO; HDL CHOLESTEROL 41.5 MG/DL (40.0-60.0); TOTAL BILIRUBIN ADULT 0.4 MG/DL (0.2-1.0); TOTAL PROTEIN 8.2 GM/DL (6.4-8.2)
== END ==
LOC: CLAB 07:28
PROVIDERS: ATTEND Nurse Practitioner Family
DX: E78.2 Mixed hyperlipidemia (principal); L40.0 Psoriasis vulgaris; Z79.899 Other long term (current) drug therapy
CPT/HCPCS: 36415; 80053; 80061; 85025; 86704; 86803

== ENCOUNTER 2018-01-20 17:44 | Emergency (ER) | payer OTHER ==
[~2018-01-20] VITALS: Ht 167.6 cm; Wt 110.0 kg
[2018-01-20 18:00] VITALS: BP 155/76; PULSE 98; RESP 16; TEMP 100.2; O2SAT 98
[2018-01-20] MEDS ORDERED: SODIUM CHLOR 0.9% 1000 ML INJ 1,000 ML IV SCH (19:52)
--- NOTE | 2018-01-20 19:56 | PD ---
HPI Chief Complaint: Skin Problem Time Seen by Provider: 19:45 Travel History International Travel<30 days: No Contact w/Intl Traveler<30days: No Traveled to known affect area: No History of Present Illness HPI 57-year-old female presents for evaluation of area of redness and drainage on the medial aspect of the left thigh. She reports that she was gardening 5 days ago and she believes that she may been bitten by a bug while wearing shorts. Since then she has had worsening redness and pain to the medial left thigh. Pain is aching, constant, aggravated by palpation, no alleviating factors. She has had chills and myalgias as well. Denies chest pain, shortness of breath, abdominal pain, nausea or vomiting. She has no other complaints at this time. PFSH Past Medical History Asthma: No Chest Pain: Yes COPD: No Diabetes: No Diminished Hearing: No GERD: Yes Hypertension: Yes Immunizations Current: No Thyroid Disease: No ?: Not Menopausal: Yes Past Surgical History Section: Yes (x1) Social History Alcohol Use: Yes (OCC.) Tobacco Use: No Substance Use: No Allergies-Medications (Allergen,Severity, Reaction): Coded Allergies: No Known Allergies (Verified Adverse Reaction, Unknown, 01/20/18) Reported Meds & Prescriptions Reported Meds & Active Scripts Active Clindamycin (Clindamycin HCl) 300 Mg Cap 300 Mg PO TID 10 Days Bactrim DS (Sulfamethoxazole-Trimethoprim) 800-160 Mg Tab 1 Tab PO BID Atorvastatin (Atorvastatin Calcium) 20 Mg Tab 20 Mg PO HS Omeprazole 20 Mg Tab 20 Mg PO DAILY Reported Hydrochlorothiazide 25 Mg Tab 25 Mg PO DAILY Amlodipine (Amlodipine Besylate) 10 Mg Tab 10 Mg PO DAILY Review of Systems Except as stated in HPI: all other systems reviewed are Neg Physical Exam Narrative GENERAL: Well-developed well-nourished female no acute distress SKIN: Warm and dry. Large area of erythema to the medial left thigh. There is central induration. There is small opening which is draining bloody purulent drainage. HEAD: Atraumatic. Normocephalic. EYES: Pupils equal and round. No scleral icterus. No injection or drainage. ENT: No nasal bleeding or discharge. Mucous membranes pink and moist. NECK: Trachea midline. No JVD. CARDIOVASCULAR: Regular rate and rhythm. No murmur appreciated. RESPIRATORY: No accessory muscle use. Clear to auscultation. Breath sounds equal bilaterally. GASTROINTESTINAL: Abdomen soft, non-tender, nondistended. Hepatic and splenic margins not palpable. MUSCULOSKELETAL: No obvious deformities. No clubbing. No cyanosis. No edema. NEUROLOGICAL: Awake and alert. No obvious cranial nerve deficits. Motor grossly within normal limits. Normal speech. Data Data Last Documented VS Vital Signs Date Time Temp Pulse Resp B/P (MAP) Pulse Ox O2 Delivery O2 Flow Rate FiO2 01/20/18 18:00 100.2 98 16 155/76 (102) 98 Orders Orders Sepsis Workup Initiated (01/20/18 ) Complete Blood Count With Diff (01/20/18 19:52) Lactic Acid Sepsis Protocol (01/20/18 19:52) Blood Culture (01/20/18 19:52) Wound Culture And Gram Stain (01/20/18 19:52) Basic Metabolic Panel (Bmp) (01/20/18 19:52) Iv Access Insert/Monitor (01/20/18 19:52) Sodium Chlor 0.9% 1000 Ml Inj (Ns 1000 M (01/20/18 19:52) Lidocai-Epi 1%-1:100,000 Inj (Xylocaine- (01/20/18 20:00) Potassium Chloride (Kcl) (01/20/18 21:30) Vancomycin Inj (Vancomycin Inj) (01/20/18 22:00) Labs Laboratory Tests Test 01/20/18 20:20 White Blood Count 9.3 TH/MM3 Red Blood Count 4.23 MIL/MM3 Hemoglobin 13.2 GM/DL Hematocrit 38.5 % Mean Corpuscular Volume 91.0 FL Mean Corpuscular Hemoglobin 31.1 PG Mean Corpuscular Hemoglobin Concent 34.2 % Red Cell Distribution Width 14.2 % Platelet Count 186 TH/MM3 Mean Platelet Volume 10.6 FL Neutrophils (%) (Auto) 75.5 % Lymphocytes (%) (Auto) 17.5 % Monocytes (%) (Auto) 6.4 % Eosinophils (%) (Auto) 0.2 % Basophils (%) (Auto) 0.4 % Neutrophils # (Auto) 7.0 TH/MM3 Lymphocytes # (Auto) 1.6 TH/MM3 Monocytes # (Auto) 0.6 TH/MM3 Eosinophils # (Auto) 0.0 TH/MM3 Basophils # (Auto) 0.0 TH/MM3 CBC Comment DIFF FINAL Differential Comment Blood Urea Nitrogen 13 MG/DL Creatinine 1.28 MG/DL Random Glucose 111 MG/DL Calcium Level 9.2 MG/DL Sodium Level 138 MEQ/L Potassium Level 3.2 MEQ/L Chloride Level 101 MEQ/L Carbon Dioxide Level 27.0 MEQ/L Anion Gap 10 MEQ/L Estimat Glomerular Filtration Rate 52 ML/MIN Lactic Acid Level 0.9 mmol/L MDM Medical Decision Making Medical Screen Exam Complete: Yes Emergency Medical Condition: Yes Medical Record Reviewed: Yes Differential Diagnosis Cellulitis, abscess, erysipelas, necrotizing fasciitis Narrative Course Examination is consistent with cellulitis with central abscess on the medial left thigh. A wound culture was performed. Plan is for incision and drainage for which she verbally consents. Lab work, blood cultures ordered. IV fluids initiated. Lab work is reassuring. IV vancomycin was initiated. At this point time the plan is to discharge the patient and have her return in 2 days for recheck. The area of erythema was circled with a surgical marker. She understands to return sooner if symptoms worsen. Procedures Procedure Narrative INCISION AND DRAINAGE OF ABSCESS: The area was prepped and was sterilely draped. A subcutaneous wheal of 1% Xylocaine [with epinephrine with a total number 6 mL was used to anesthetize the area. The area was properly anesthetized. A number 11 scalpel was used to make a 1-cm incision across the area of the abscess. Cultures were obtained. The abscess was drained an irrigated with normal saline. Diagnosis Primary Impression: Cellulitis of left leg Additional Impression: Abscess of left leg Additional Instructions: Medication as prescribed. Warm compresses several times a day 15 minutes at a time. Return in 2 days for routine recheck. Return sooner if symptoms worsen. Med/Other Pt SpecificInfo: Prescription(s) given, Wound Care Scripts Clindamycin (Clindamycin) 300 Mg Cap 300 MG PO TID for Infection for 10 Days, CAP 0 Refills Prov: Jose Rubin MD 01/20/18 Sulfamethoxazole-Trimethoprim (Bactrim DS) 800-160 Mg Tab 1 TAB PO BID for Infection, #20 TAB 0 Refills Prov: Jose Rubin MD 01/20/18 Disposition: DISCHARGE HOME Condition: Stable Dexter Coy Jan 20, 2018 19:56
[2018-01-20] MEDS ORDERED: LIDOCAINE 1%/EPINEPHrine 1:100,000 SOLN 50 ML VIAL INFIL ONE (20:00)
[2018-01-20 20:32] LABS: BASOPHIL % 0.4 % (0.0-2.0); EOSINOPHIL % 0.2 % (0.0-4.0); HEMATOCRIT 38.5 % (35.0-46.0); HEMOGLOBIN 13.2 GM/DL (11.6-15.3); LYMPH % 17.5 % (9.0-44.0); LYMPHOCYTE # 1.6 TH/MM3 (1.0-4.8); MEAN CORPUSCULAR HEMOGLOBIN 31.1 PG (27.0-34.0); MEAN CORPUSCULAR HGB CONC 34.2 % (32.0-36.0); MEAN PLATELET VOLUME 10.6 FL (7.0-11.0); MONO % 6.4 % (0.0-8.0); MONOCYTE # 0.6 TH/MM3 (0-0.9); NEUT % 75.5 % (16.0-70.0); PLATELET COUNT 186 TH/MM3 (150-450); RED BLOOD COUNT 4.23 MIL/MM3 (4.00-5.30); RED CELL DISTRIBUTION WIDTH 14.2 % (11.6-17.2); WHITE BLOOD COUNT 9.3 TH/MM3 (4.0-11.0)
[2018-01-20] MEDS ORDERED: AMLO10TA2 PO (20:32)
[2018-01-20] MEDS ORDERED: HYDR25TA5 PO (20:32)
[2018-01-20 20:59] LABS: CALCIUM 9.2 MG/DL (8.5-10.1); CREATININE 1.28 MG/DL (0.50-1.00)
[2018-01-20] MEDS ORDERED: POTASSIUM CHLORIDE 20 MEQ CONTROLLED RELEASE TAB PO ONE (21:30)
[2018-01-20] MEDS ORDERED: VANCOMYCIN INJ 1,000 MG in SODIUM CHLOR 0.9% 250 ML INJ 250 ML IV ONE (22:00)
[2018-01-20] MEDS ORDERED: BACT800T5 PO (22:11)
[2018-01-20] MEDS ORDERED: CLIN300C5 PO (22:11)
== END 2018-01-20 23:37 | disposition home or self-care (01) ==
LOC: NEPD 17:44
DX: L03.116 Cellulitis of left lower limb (principal); L02.416 Cutaneous abscess of left lower limb; B95.62 Methicillin resistant Staphylococcus aureus infection as the cause of diseases classified elsewhere; I10 Essential (primary) hypertension; K21.9 Gastro-esophageal reflux disease without esophagitis
CPT/HCPCS: 10060; 80048; 83605; 85025; 86403; 87040; 87070; 87186; 96361; 96365; 99284; J3370; J7030; J7050; 87205

== ENCOUNTER 2018-01-23 05:41 | Emergency (ER) | payer OTHER ==
[~2018-01-23] VITALS: Ht 167.6 cm; Wt 109.0 kg
[~2018-01-23 05:41] MED LIST changes: +AMLO10TA2 PO; -AMLO5TAB2 PO; +BACT800T5 PO; +CLIN300C5 PO; +HYDR25TA5 PO; -KETOC2%T TOPICAL; -LOSA50TA PO; -NITR1SUB3 SL
[2018-01-23 05:44] VITALS: BP 167/75; PULSE 84; RESP 14; TEMP 98; O2SAT 98
--- NOTE | 2018-01-23 06:01 | PD ---
HPI Chief Complaint: Wound/Suture/Staple Re-Check Time Seen by Provider: 05:58 Travel History International Travel<30 days: No Contact w/Intl Traveler<30days: No Traveled to known affect area: No History of Present Illness HPI This is a 57-year-old female who presents for reevaluation of cellulitis. Symptoms initially started 6-7 days ago on the medial left thigh after a bug bite. She was seen here 3 days ago and prescribed clindamycin and Bactrim. Incision and drainage of abscess was performed. Wound culture has grown preliminary results of coagulation-positive Staphylococcus species without any sensitivity. She reports that symptoms are improving, she was told to return in 2 days for recheck. She reports pain centrally, aching, mild, aggravated by palpation with no relieving factors. No fevers or chills. No other complaints. History Past Medical Histgory Tetanus Vaccination: < 5 Years Menopausal: Yes Past Surgical History Surgical History: No Previous Surgery Social History Alcohol Use: Yes (socially) Tobacco Use: No Allergies-Medications (Allergen,Severity, Reaction): Coded Allergies: No Known Allergies (Verified Adverse Reaction, Unknown, 01/20/18) Reported Meds & Prescriptions Reported Meds & Active Scripts Active Clindamycin (Clindamycin HCl) 300 Mg Cap 300 Mg PO TID 10 Days Bactrim DS (Sulfamethoxazole-Trimethoprim) 800-160 Mg Tab 1 Tab PO BID Atorvastatin (Atorvastatin Calcium) 20 Mg Tab 20 Mg PO HS Omeprazole 20 Mg Tab 20 Mg PO DAILY Reported Hydrochlorothiazide 25 Mg Tab 25 Mg PO DAILY Amlodipine (Amlodipine Besylate) 10 Mg Tab 10 Mg PO DAILY Review of Systems Except as stated in HPI: all other systems reviewed are Neg Physical Exam Narrative GENERAL: Well-developed well-nourished female no acute distress SKIN: Warm and dry. Examination of the medial left thigh reveals an area of induration. The incision wound is noted. There is no purulent drainage or fluctuance. The area of cellulitis and was previously circled with a surgical marker is markedly reduced by at least 50%. CARDIOVASCULAR: Regular rate and rhythm. No murmur appreciated. RESPIRATORY: No accessory muscle use. Clear to auscultation. Breath sounds equal bilaterally. MUSCULOSKELETAL: No obvious deformities. Skin as noted above. NEUROLOGICAL: Awake and alert. No obvious cranial nerve deficits. Motor grossly within normal limits. Normal speech. Data Data Last Documented VS Vital Signs Date Time Temp Pulse Resp B/P (MAP) Pulse Ox O2 Delivery O2 Flow Rate FiO2 01/23/18 05:44 98.0 84 14 167/75 (105) 98 MDM Medical Screen Exam Complete: Yes Emergency Medical Condition: No Narrative Course The patient's cellulitis is significantly improved. Wound culture sensitivity results are currently pending. The patient understands to continue taking her antibiotics and she understands symptoms that would warrant returning to the emergency room. A medical screening exam was performed: At the time of evaluation the presenting medical condition was determined not to be of an emergent nature. The patient was given the option of receiving additional care, but declined. Patient was given options for additional community resources from which to obtain care. The Patient Has Been advised to seek medical attention for their presenting complaint. The patient has been advised to return to the ER at any time if an emergent condition develops. Primary Impression: Encounter for medical screening examination Dexter Coy Jan 23, 2018 06:01
== END 2018-01-23 08:25 | disposition left against medical advice (07) ==
LOC: NEPD 05:41
DX: L03.116 Cellulitis of left lower limb (principal)
CPT/HCPCS: 99281

== ENCOUNTER 2018-01-30 21:43 | Inpatient (IN) ==
[2018-02-02] MEDS ORDERED: Pharmacy Ordered Lab Info OTHER ONE (00:01)
[2018-02-02] MEDS ORDERED: Vancomycin Inj 1,750 MG in Sodium Chlor 0.9% Inj 500 ML IV.SIG SCH (00:01)
[2018-02-02] MEDS ORDERED: Vancomycin Consult Pharmacy 1 EACH OTHER SCH (00:01)
[2018-02-02] MEDS ORDERED: Bisacodyl 10 MG Supp RECTAL PRN (00:01)
[2018-02-02] MEDS ORDERED: Morphine Inj 4 MG/ML Vial IV.PUSH PRN (00:01)
[2018-02-02] MEDS ORDERED: Acetaminophen 325 MG Tablet ONE (00:46)
[2018-02-02] MEDS: Sod Chloride 0.9% Inj 1,000 ML IV.SIG SCH ×2 (03:46→17:44)
[2018-02-02] MEDS: metroNIDAZOLE 500 MG Tablet PO SCH ×4 (05:37→21:01)
[2018-02-02] MEDS: amLODIPine 10 MG Tablet PO SCH ×2 (08:01→08:24)
[2018-02-02] MEDS: Senna/Docusate Sodium 8.6/50 MG Tablet PO SCH ×3 (08:01→21:01)
[2018-02-02] MEDS: Cefepime Inj 2,000 MG in Sodium Chlor 0.9% Inj 100 ML IV.SIG SCH ×2 (08:23→11:34)
[2018-02-02 09:41] VITALS: O2SAT 98
[2018-02-02] MEDS: Vancomycin Inj 1,750 MG in Sodium Chlor 0.9% Inj 500 ML IV.SIG SCH (11:34)
--- NOTE | 2018-02-02 13:02 | P.PNIM ---
Subjective Interval history: Fever is present again overnight. According decrease in diarrhea. She starting to feel better. Physical Exam Vital signs: Vital Signs 02/01/18 20:00 02/01/18 23:40 02/02/18 00:00 Temperature 98.7 F 101.2 F H Pulse Rate 87 104 H 98 H Respiratory Rate 16 17 Blood Pressure 147/69 H 180/82 H Pulse Oximetry 97 99 02/02/18 03:40 02/02/18 04:00 02/02/18 08:00 Temperature 98.7 F 98.6 F Pulse Rate 82 90 89 Respiratory Rate 16 20 Blood Pressure 144/72 H 150/69 H Pulse Oximetry 97 98 02/02/18 09:46 Temperature Pulse Rate 81 Respiratory Rate Blood Pressure Pulse Oximetry Intake & Output 02/01/18 02/02/18 02/02/18 18:59 06:59 18:59 Intake Total 620 / 620 Output Total 1800 / 1800 Balance -1180 / -1180 Weight 106.6 kg 106.8 kg Intake: Oral 620 / 620 Output: Urine 1800 / 1800 - Routine HEENT Exam Comments: GENERAL: NAD, A&Ox3 HEAD: Normocephalic. NECK: Supple, trachea midline. No lymphadenopathy. EYES: No scleral icterus. No injection or drainage. CARDIOVASCULAR: Regular rate and rhythm without murmurs, gallops, or rubs. RESPIRATORY: Breath sounds equal bilaterally. No accessory muscle use. GASTROINTESTINAL: Abdomen soft, non-tender, nondistended. MUSCULOSKELETAL: No cyanosis, or edema. SKIN: Warm and dry. NEURO: No focal neurological deficitis. Results - Labs CBC & Chem 7: 01/31/18 05:40 02/01/18 05:30 Labs: Laboratory Results - last 24 hr 01/30/18 01/30/18 01/30/18 22:15 22:15 22:15 WBC 9.5 RBC 4.33 Hgb 13.4 Hct 38.7 MCV 89.4 MCH 30.9 MCHC 34.6 RDW 14.2 Plt Count 245 MPV 9.5 Neut % (Auto) 86.9 H Lymph % (Auto) 7.7 L [place] % (Auto) 4.4 Eos % (Auto) 0.7 Baso % (Auto) 0.3 Neut # (Auto) 8.3 H Lymph # (Auto) 0.7 L [place] # (Auto) 0.4 Eos # (Auto) 0.1 Baso # (Auto) 0.0 CBC Comment DIFF FINAL Sodium 141 Potassium 3.3 L Chloride 107 Carbon Dioxide 23.4 Anion Gap 11 BUN 18 Creatinine 1.54 H Estimated GFR 42 L Random Glucose 102 Lactic Acid 1.4 Calcium 8.7 Total Bilirubin 0.3 AST 18 ALT 34 Alkaline Phosphatase 93 Total Protein 8.7 H Albumin 4.1 Urine Color Urine Turbidity Urine pH Ur Specific [place] Urine Protein Urine Glucose (UA) Urine Ketones Urine Occult Blood Urine Nitrite Urine Bilirubin Urine Urobilinogen Ur Leukocyte Esterase Urine RBC Urine WBC Ur Squamous Epith Cells Urine Bacteria Hyaline Casts Micro UA Comment Stl C.difficile Tox PCR St C. diff Tox Epid 027 01/30/18 01/30/18 01/31/18 22:30 22:30 05:40 WBC RBC Hgb Hct MCV MCH MCHC RDW Plt Count MPV Neut % (Auto) Lymph % (Auto) [place] % (Auto) Eos % (Auto) Baso % (Auto) Neut # (Auto) Lymph # (Auto) [place] # (Auto) Eos # (Auto) Baso # (Auto) CBC Comment Sodium 140 Potassium 3.2 L Chloride 106 Carbon Dioxide 19.1 L Anion Gap 15 BUN 16 Creatinine 1.23 H Estimated GFR 55 L Random Glucose 80 Lactic Acid Calcium 8.2 L Total Bilirubin 0.5 AST 12 L ALT 30 Alkaline Phosphatase 86 Total Protein 7.8 D Albumin 3.6 Urine Color YELLOW Urine Turbidity HAZY H Urine pH 5.0 Ur Specific [place] 1.015 Urine Protein 30 H Urine Glucose (UA) NEG Urine Ketones NEG Urine Occult Blood MOD H Urine Nitrite NEG Urine Bilirubin NEG Urine Urobilinogen 2.0 H Ur Leukocyte Esterase NEG Urine RBC 1 Urine WBC 3 Ur Squamous Epith Cells 3 Urine Bacteria RARE H Hyaline Casts 10 Micro UA Comment CATH-CULTURE IND Stl C.difficile Tox PCR POSITIVE H St C. diff Tox Epid 027 PRESUMPTIVE POSITIVE H 01/31/18 02/01/18 05:40 05:30 WBC 10.1 RBC 3.97 L Hgb 12.3 Hct 36.3 MCV 91.4 MCH 31.0 MCHC 33.9 RDW 14.4 Plt Count 234 MPV 9.9 Neut % (Auto) 87.6 H Lymph % (Auto) 7.9 L [place] % (Auto) 4.1 Eos % (Auto) 0.2 Baso % (Auto) 0.2 Neut # (Auto) 8.8 H Lymph # (Auto) 0.8 L [place] # (Auto) 0.4 Eos # (Auto) 0.0 Baso # (Auto) 0.0 CBC Comment DIFF FINAL Sodium Potassium Chloride Carbon Dioxide Anion Gap BUN Creatinine 0.95 Estimated GFR 74 L Random Glucose Lactic Acid Calcium Total Bilirubin AST ALT Alkaline Phosphatase Total Protein Albumin Urine Color Urine Turbidity Urine pH Ur Specific [place] Urine Protein Urine Glucose (UA) Urine Ketones Urine Occult Blood Urine Nitrite Urine Bilirubin Urine Urobilinogen Ur Leukocyte Esterase Urine RBC Urine WBC Ur Squamous Epith Cells Urine Bacteria Hyaline Casts Micro UA Comment Stl C.difficile Tox PCR St C. diff Tox Epid 027 Assessment and Plan - Plan 57-year-old female admitted secondary to C. difficile colitis after receiving treatment for cellulitis. Improvements in clinical status are seen today. Patient did have a fever overnight but she has a decrease in diarrhea. Continue to monitor electrolytes. Continue to monitor rate of diarrhea. Continue present treatments. C. difficile colitis Sepsis Sepsis not yet resolved C. difficile colitis treatment upgraded to p.o. vancomycin in addition to oral Flagyl Questran added Monitor diarrhea status Urinary tract infection Follow for cultures Cellulitis IV Vancomycin Follow or improvement Acute kidney injury Avoid nephrotoxins Follow renal function Hypertension Continue baseline treatment Follow blood pressures Adjust treatments as needed As needed clonidine DVT prophylaxis SCDs
[2018-02-02] MEDS: Acetaminophen 325 MG Tablet PO PRN (17:43)
--- NOTE | 2018-02-02 18:10 | P.PNIM ---
Physical Exam Vital signs: Vital Signs 02/01/18 20:00 02/01/18 23:40 02/02/18 00:00 Temperature 98.7 F 101.2 F H Pulse Rate 87 104 H 98 H Respiratory Rate 16 17 Blood Pressure 147/69 H 180/82 H Pulse Oximetry 97 99 02/02/18 03:40 02/02/18 04:00 02/02/18 08:00 Temperature 98.7 F 98.6 F Pulse Rate 82 90 89 Respiratory Rate 16 20 Blood Pressure 144/72 H 150/69 H Pulse Oximetry 97 98 02/02/18 09:46 02/02/18 12:00 02/02/18 13:10 Temperature 98.0 F Pulse Rate 81 90 88 Respiratory Rate 20 Blood Pressure 154/71 H Pulse Oximetry 98 Intake & Output 02/01/18 02/02/18 02/02/18 18:59 06:59 18:59 Intake Total 620 / 620 1617.5 / 1617.5 Output Total 1800 / 1800 Balance -1180 / -1180 1617.5 / 1617.5 Weight 106.6 kg 106.8 kg Intake: IV 1617.5 / 1617.5 Maxipime Inj 2,000 MG In NS Inj 100 / 100 100 ML @ 200 mls/hr IV.SIG Q12H JOAQUIN Rx#:[id number] NS Inj 1,000 ML @ 100 mls/hr IV 1000 / 1000 .SIG .Q10H JOAQUIN Rx#:[id number] Vancomycin Inj 1,750 MG In NS 517.5 / 517.5 Inj 500 ML @ 250 mls/hr IV.SIG Q18H JOAQUIN Rx#:[id number] Oral 620 / 620 Output: Urine 1800 / 1800 Results - Labs CBC & Chem 7: 01/31/18 05:40 02/01/18 05:30 Labs: Laboratory Results - last 24 hr 01/30/18 01/30/18 01/30/18 22:15 22:15 22:15 WBC 9.5 RBC 4.33 Hgb 13.4 Hct 38.7 MCV 89.4 MCH 30.9 MCHC 34.6 RDW 14.2 Plt Count 245 MPV 9.5 Neut % (Auto) 86.9 H Lymph % (Auto) 7.7 L [place] % (Auto) 4.4 Eos % (Auto) 0.7 Baso % (Auto) 0.3 Neut # (Auto) 8.3 H Lymph # (Auto) 0.7 L [place] # (Auto) 0.4 Eos # (Auto) 0.1 Baso # (Auto) 0.0 CBC Comment DIFF FINAL Sodium 141 Potassium 3.3 L Chloride 107 Carbon Dioxide 23.4 Anion Gap 11 BUN 18 Creatinine 1.54 H Estimated GFR 42 L Random Glucose 102 Lactic Acid 1.4 Calcium 8.7 Total Bilirubin 0.3 AST 18 ALT 34 Alkaline Phosphatase 93 Total Protein 8.7 H Albumin 4.1 Urine Color Urine Turbidity Urine pH Ur Specific [place] Urine Protein Urine Glucose (UA) Urine Ketones Urine Occult Blood Urine Nitrite Urine Bilirubin Urine Urobilinogen Ur Leukocyte Esterase Urine RBC Urine WBC Ur Squamous Epith Cells Urine Bacteria Hyaline Casts Micro UA Comment Stl C.difficile Tox PCR St C. diff Tox Epid 027 01/30/18 01/30/18 01/31/18 22:30 22:30 05:40 WBC RBC Hgb Hct MCV MCH MCHC RDW Plt Count MPV Neut % (Auto) Lymph % (Auto) [place] % (Auto) Eos % (Auto) Baso % (Auto) Neut # (Auto) Lymph # (Auto) [place] # (Auto) Eos # (Auto) Baso # (Auto) CBC Comment Sodium 140 Potassium 3.2 L Chloride 106 Carbon Dioxide 19.1 L Anion Gap 15 BUN 16 Creatinine 1.23 H Estimated GFR 55 L Random Glucose 80 Lactic Acid Calcium 8.2 L Total Bilirubin 0.5 AST 12 L ALT 30 Alkaline Phosphatase 86 Total Protein 7.8 D Albumin 3.6 Urine Color YELLOW Urine Turbidity HAZY H Urine pH 5.0 Ur Specific [place] 1.015 Urine Protein 30 H Urine Glucose (UA) NEG Urine Ketones NEG Urine Occult Blood MOD H Urine Nitrite NEG Urine Bilirubin NEG Urine Urobilinogen 2.0 H Ur Leukocyte Esterase NEG Urine RBC 1 Urine WBC 3 Ur Squamous Epith Cells 3 Urine Bacteria RARE H Hyaline Casts 10 Micro UA Comment CATH-CULTURE IND Stl C.difficile Tox PCR POSITIVE H St C. diff Tox Epid 027 PRESUMPTIVE POSITIVE H 01/31/18 02/01/18 05:40 05:30 WBC 10.1 RBC 3.97 L Hgb 12.3 Hct 36.3 MCV 91.4 MCH 31.0 MCHC 33.9 RDW 14.4 Plt Count 234 MPV 9.9 Neut % (Auto) 87.6 H Lymph % (Auto) 7.9 L [place] % (Auto) 4.1 Eos % (Auto) 0.2 Baso % (Auto) 0.2 Neut # (Auto) 8.8 H Lymph # (Auto) 0.8 L [place] # (Auto) 0.4 Eos # (Auto) 0.0 Baso # (Auto) 0.0 CBC Comment DIFF FINAL Sodium Potassium Chloride Carbon Dioxide Anion Gap BUN Creatinine 0.95 Estimated GFR 74 L Random Glucose Lactic Acid Calcium Total Bilirubin AST ALT Alkaline Phosphatase Total Protein Albumin Urine Color Urine Turbidity Urine pH Ur Specific [place] Urine Protein Urine Glucose (UA) Urine Ketones Urine Occult Blood Urine Nitrite Urine Bilirubin Urine Urobilinogen Ur Leukocyte Esterase Urine RBC Urine WBC Ur Squamous Epith Cells Urine Bacteria Hyaline Casts Micro UA Comment Stl C.difficile Tox PCR St C. diff Tox Epid 027
[2018-02-03] MEDS: metroNIDAZOLE 500 MG Tablet PO SCH (05:42)
[2018-02-03] MEDS: Sod Chloride 0.9% Inj 1,000 ML IV.SIG SCH (05:42)
[2018-02-03] MEDS ORDERED: Pharmacy Ordered Lab Info OTHER ONE (05:45)
[2018-02-03 06:49] LABS: Baso % (Auto) 0.3 % (0.0-2.0); Eos # (Auto) 0.1 th/mm3 (0.0-0.4); Eos % (Auto) 2.5 % (0.0-4.0); Hematocrit 31.2 % (35.0-46.0); Hemoglobin 10.5 gm/dL (11.6-15.3); Lymph # (Auto) 1.5 th/mm3 (1.0-4.8); Lymph % (Auto) 25.8 % (9.0-44.0); Mean Corpuscular HGB Conc 33.7 % (32.0-36.0); Mean Corpuscular Hemoglobin 30.5 pg (27.0-34.0); Mean Corpuscular Volume 90.5 fL (80.0-100.0); Mono # (Auto) 0.5 th/mm3 (0.0-0.9); Mono % (Auto) 8.2 % (0.0-8.0); Neut # (Auto) 3.7 th/mm3 (1.8-7.7); Neut % (Auto) 63.2 % (16.0-70.0); Platelet Count 165 th/mm3 (150-450); Red Blood Count 3.45 mil/mm3 (4.00-5.30); Red Cell Distribution Width 14.2 % (11.6-17.2); White Blood Count 5.9 th/mm3 (4.0-11.0)
[2018-02-03] MEDS: Acetaminophen 325 MG Tablet PO PRN (06:49)
[2018-02-03 07:14] LABS: Alanine Aminotransferase 26 U/L (10-53); Albumin 2.9 g/dL (3.4-5.0); Alkaline Phosphatase 61 U/L (45-117); Anion Gap 9 meq/L (5-15); Aspartate Aminotransferase 17 U/L (15-37); Blood Urea Nitrogen 8 mg/dL (7-18); Calcium 7.9 mg/dL (8.5-10.1); Carbon Dioxide 21.8 meq/L (21.0-32.0); Chloride 111 meq/L (98-107); Glomerular Filtration Rate 85 mL/min (>89); Glucose,Random 103 mg/dL (74-106); Potassium 3.3 meq/L (3.5-5.1); Sodium 142 meq/L (136-145); Total Protein 6.8 g/dL (6.4-8.2)
[2018-02-03] MEDS: Vancomycin Inj 1,750 MG in Sodium Chlor 0.9% Inj 500 ML IV.SIG SCH (08:39)
[2018-02-03] MEDS: amLODIPine 10 MG Tablet PO SCH (08:43)
[2018-02-03] MEDS: Senna/Docusate Sodium 8.6/50 MG Tablet PO SCH (08:43)
--- NOTE | 2018-02-03 11:35 | P.DS ---
Date of admission: 01/30/18 23:55 Primary care physician: No Primary Care Physician Brief History from admission: Mrs. Guzman was admitted with diarrhea in the presence of being on antibiotics for treatment of cellulitis. Diagnosis of C. difficile colitis after admit. DS: Diagnosis - Discharge Diagnosis (1) C. difficile colitis Status: Acute (2) C. difficile colitis Status: Acute (3) Cellulitis, diffuse Status: Acute (4) Cellulitis, diffuse Status: Acute DS: Medications - Discharge Medications Prescriptions: Lactobacillus acidophilus 100 mmu cells PO TID #30 cap potassium chloride [Klor-Con 10] 20 meq PO BID #10 tab vancomycin 125 mg PO QID #40 cap DS: Summary Hospital Course: Mrs. Guzman is a 58-year-old female. She was admitted secondary to C. difficile colitis. Etiology for her C. difficile colitis is related to antibiotic use. She was taking clindamycin and Bactrim as an outpatient for treatment of a left leg cellulitis. Left leg cellulitis has been improving. When she came in she was septic appears to been related to C. difficile toxins. With time fevers have resolved and heart rates are back to normal rates. She is tolerating p.o. vancomycin well as a treatment is medically stable and cleared for discharge home today. - Time Spent with Patient Total time spent providing and/or coordinating discharge services: Less than 30 minutes Exam Vital signs: Vital Signs 02/02/18 12:00 02/02/18 13:10 02/02/18 16:00 Temperature 98.0 F 99.1 F Pulse Rate 90 88 85 Respiratory Rate 20 20 Blood Pressure 154/71 H 158/80 H Pulse Oximetry 98 97 02/02/18 20:00 02/03/18 00:00 02/03/18 03:11 Temperature 98.6 F 98.7 F Pulse Rate 87 89 88 Respiratory Rate 20 20 Blood Pressure 147/67 H 148/70 H Pulse Oximetry 97 98 02/03/18 03:45 02/03/18 04:00 02/03/18 08:00 Temperature 98.3 F Pulse Rate 94 H 77 84 Respiratory Rate 22 Blood Pressure 110/57 L Pulse Oximetry 98 Intake & Output 02/02/18 02/03/18 02/03/18 18:59 06:59 18:59 Intake Total 2097.5 / 2097.5 1720 / 1720 Output Total 2500 / 2500 Balance -402.5 / -402.5 1720 / 1720 Weight 108.3 kg Intake: IV 1617.5 / 1617.5 1000 / 1000 Maxipime Inj 2,000 MG In NS Inj 100 / 100 100 ML @ 200 mls/hr IV.SIG Q12H JOAQUIN Rx#:[id number] NS Inj 1,000 ML @ 100 mls/hr IV 1000 / 1000 1000 / 1000 .SIG .Q10H JOAQUIN Rx#:[id number] Vancomycin Inj 1,750 MG In NS 517.5 / 517.5 Inj 500 ML @ 250 mls/hr IV.SIG Q18H JOAQUIN Rx#:[id number] Oral 480 / 480 720 / 720 Output: Urine 2500 / 2500 Other: # Voids 1 4 # Bowel Movements 0 Results Procedures completed during hospitalization: None Labs on day of discharge: Labs from last 24 hours 02/03/18 02/03/18 02/03/18 05:20 05:20 05:20 WBC 5.9 RBC 3.45 L Hgb 10.5 L Hct 31.2 L MCV 90.5 MCH 30.5 MCHC 33.7 RDW 14.2 Plt Count 165 MPV 10.0 Neut % (Auto) 63.2 Lymph % (Auto) 25.8 [place] % (Auto) 8.2 H Eos % (Auto) 2.5 Baso % (Auto) 0.3 Neut # (Auto) 3.7 Lymph # (Auto) 1.5 [place] # (Auto) 0.5 Eos # (Auto) 0.1 Baso # (Auto) 0.0 WBC Differential . Differential Comment Auto diff final Sodium 142 Potassium 3.3 L Chloride 111 H Carbon Dioxide 21.8 Anion Gap 9 BUN 8 Creatinine 0.84 Estimated GFR 85 L Random Glucose 103 Calcium 7.9 L Total Bilirubin 0.3 AST 17 ALT 26 Alkaline Phosphatase 61 Total Protein 6.8 Albumin 2.9 L Vancomycin Trough 7.3 Discharge Plan - Discharge Disposition Patient Disposition: 01 Discharge Home - Discharge Condition Condition: Stable - Discharge Order Discharge Orders: Discharge Order (Routine); Ordered 02/03/18 Ordered By: Josué Hinkle - Discharge Details Anticipated Discharge Date/Time: 02/03/18 11:31 - Physicians Team Primary Care Provider: Primary Care Ramon,Estela Attending Provider: Josué Hinkle - Rxs /Orders / Referrals /Forms Prescriptions: New Lactobacillus acidophilus Capsule 100 mmu cells PO TID Qty: 30 RF: 0 potassium chloride [Klor-Con 10] 10 mEq Tablet Extended Release 20 meq PO BID Qty: 10 RF: 0 vancomycin 125 mg Capsule 125 mg PO QID Qty: 40 RF: 0 Continue amlodipine 10 mg Tablet 10 mg PO DAILY atorvastatin 20 mg Tablet 20 mg PO HS clindamycin HCl 300 mg Capsule 300 mg PO TID hydrochlorothiazide 25 mg Tablet 25 mg PO DAILY omeprazole 20 mg Capsule,Delayed Release(Dr/Ec) 20 mg PO DAILY sulfamethoxazole-trimethoprim 800-160 mg Tablet 1 tab PO BID Referrals: Primary Care RamonNo [Primary Care Provider] - See Instructions Forms: Work Release/Restrictions
[2018-02-04 12:52] VITALS: BP 110/57; PULSE 84; TEMP 98.3
[2018-02-04 13:17] VITALS: RESP 22
== END 2018-02-03 12:48 | disposition home or self-care (01) ==
LOC: UNDODISIN → N04 23:55
PROVIDERS: ADMIT Hospitalist; ATTEND Hospitalist

== ENCOUNTER 2018-08-07 19:40 | Observation (INO) ==
--- NOTE | 2018-08-07 20:09 | ED ---
HPI General Chief Complaint: Chest Pain Stated Complaint: chest pain/evac Time Seen by Provider: 08/07/18 19:48 Source: patient Mode of arrival: EMS Limitations: no limitations History of Present Illness HPI narrative: 58 years old female complains of chest pain. Patient states the pain started about 1 hour to arrival. Patient states the pain to pressure pain localized to left chest. Patient denies any pain radiation. Patient denies palpitations nausea diaphoresis. Patient states that she has shortness of breath with chest pain. Patient has history of recurrent chest pain and was advised to take nitroglycerin sublingual as needed by her physician. 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 Patient has history of hypertension, hyperlipidemia. Patient also history of psoriasis and C. difficile in the past. Patient is a non-smoker. Patient has family history of heart disease. Patient has history of esophagitis and gastritis and kidney disease and was advised not to take any NSAIDs including aspirin. MD complaint: Reports chest pain STEMI Alert: No Onset (ago): minute(s) Duration: constant Onset: during rest Pain location: Reports left chest Severity: moderate Severity scale (1-10): 7 Quality: Reports tightness and heaviness Pain radiation: Reports none Relieving factors: nothing Exacerbating factors: nothing Treatments prior to arrival chest pain: Reports none Related Data Home Medications Medication Instructions Recorded Confirmed amlodipine 10 mg PO DAILY 02/01/18 08/07/18 atorvastatin 20 mg PO HS 02/01/18 08/07/18 hydrochlorothiazide 25 mg PO DAILY 02/01/18 08/07/18 atenolol 25 mg PO DAILY 08/07/18 08/07/18 Previous Rx's Medication Instructions Recorded baclofen 10 mg PO TID #21 tab 03/31/18 Allergies Allergy/AdvReac Type Severity Reaction Status Date / Time No Known Allergies Allergy Verified 08/07/18 19:59 Review of Systems ROS: all other systems reviewed are negative PMFSH History History Provided By: Patient Medical History Medical History Hypertension (Acute) Psoriasis (Acute) Surgical History Surgical History No history of previous surgery (Acute) Social History Social History Substance History: No History of Abuse Second Hand Smoke Exposure: No Smoking Status: Never smoker How Often Do You Have a Drink Containing Alcohol: Monthly or less Recent Travel in [facility] within the Last 8 Weeks: No Recent Out of Country Travel within the Last 8 Weeks: No Exam Narrative Exam Narrative: GENERAL: Well-nourished, well-developed patient. SKIN: Focused skin assessment warm/dry. HEAD: Normocephalic. EYES: No scleral icterus. No injection or drainage. NECK: Supple, trachea midline. No JVD or lymphadenopathy. CARDIOVASCULAR: Regular rate and rhythm without murmurs, gallops, or rubs. RESPIRATORY: Breath sounds equal bilaterally. No accessory muscle use. GASTROINTESTINAL: Abdomen soft, non-tender, nondistended. MUSCULOSKELETAL: No cyanosis, or edema. BACK: Nontender without obvious deformity. No CVA tenderness. Neurologic exam normal. Course Initial Documented Vital Signs Pulse Rate 56 L 08/07/18 20:02 Respiratory Rate 20 08/07/18 20:02 Blood Pressure 193/91 H 08/07/18 20:02 Pulse Oximetry 97 08/07/18 20:02 Last Documented Vital Signs Temperature 98.4 F 08/07/18 20:11 Pulse Rate 56 L 08/07/18 20:02 Respiratory Rate 20 08/07/18 20:02 Blood Pressure 185/82 H 08/07/18 20:11 Pulse Oximetry 98 08/07/18 20:12 Medical Decision Making MDM Narrative Medical decision making narrative: 58 years old female with left-sided chest pain. Patient is unable to take aspirin because of history of kidney problem and esophagitis and gastritis. Patient has been taking nitroglycerin as needed for chest pain but not tonight. EKG shows sinus rhythm with nonspecific ST-T wave change. Unchanged from previous EKG. Cardiac enzymes are normal. Patient will be admitted to the chest pain center. Medical Screen Exam Complete: Yes Emergency Medical Condition: Yes Differential Diagnosis Differential Diagnosis: Differential diagnosis including angina, DC, PE, pneumothorax. Lab Data Lab results reviewed: Yes I reviewed the patient's lab results. Result diagrams: 08/07/18 21:00 08/07/18 21:00 Lab Results 08/07/18 08/07/18 08/07/18 Range/Units 21:00 21:00 21:00 WBC 4.3 (4.0-11.0) th/mm3 RBC 4.25 (4.00-5.30) mil/mm3 Hgb 13.1 (11.6-15.3) gm/dL Hct 39.6 (35.0-46.0) % MCV 93.2 (80.0-100.0) fL MCH 30.8 (27.0-34.0) pg MCHC 33.0 (32.0-36.0) % RDW 14.6 (11.6-17.2) % Plt Count 171 (150-450) th/mm3 MPV 11.0 (7.0-11.0) fL Neut % (Auto) 51.7 (16.0-70.0) % Lymph % (Auto) 37.2 (9.0-44.0) % Bell % (Auto) 8.5 H (0.0-8.0) % Eos % (Auto) 2.1 (0.0-4.0) % Baso % (Auto) 0.5 (0.0-2.0) % Neut # (Auto) 2.2 (1.8-7.7) th/mm3 Lymph # (Auto) 1.6 (1.0-4.8) th/mm3 Bell # (Auto) 0.4 (0.0-0.9) th/mm3 Eos # (Auto) 0.1 (0.0-0.4) th/mm3 Baso # (Auto) 0.0 (0.0-0.2) th/mm3 WBC Differential . Differential Comment Auto diff final PT (9.8-11.6) sec INR Ratio APTT (23.4-31.7) sec D-Dimer Quant (PE/DVT) Cancelled Sodium 140 (136-145) meq/L Potassium 3.3 L (3.5-5.1) meq/L Chloride 107 (98-107) meq/L Carbon Dioxide 28.1 (21.0-32.0) meq/L Anion Gap 5 (5-15) meq/L BUN 9 (7-18) mg/dL Creatinine 0.97 (0.50-1.00) mg/dL Estimated GFR 72 L (>89) mL/min Random Glucose 99 (74-106) mg/dL Calcium 8.5 (8.5-10.1) mg/dL Total Bilirubin 0.5 (0.2-1.0) mg/dL AST 22 (15-37) U/L ALT 32 (10-53) U/L Alkaline Phosphatase 109 (45-117) U/L Total Creatine Kinase 256 H (26-192) U/L CK-MB (CK-2) 1.4 (0.5-3.6) ng/mL CK-MB (CK-2) % 0.5 (0.0-4.0) % Troponin I Less than 0.02 L (0.02-0.05) ng/mL Total Protein 8.1 (6.4-8.2) g/dL Albumin 4.0 (3.4-5.0) g/dL Urine Color (Yellw/Straw) Urine Clarity (Clear) Urine pH (5.0-8.5) Ur Specific Kiln (1.002-1.035) Urine Protein (Neg-Trace) mg/dL Urine Glucose (UA) (Negative) mg/dL Urine Ketones (Negative) mg/dL Urine Occult Blood (Negative) Urine Nitrate (Negative) Urine Bilirubin (Negative) Urine Urobilinogen (Less than 2) mg/dL Ur Leukocyte Esterase (Negative) Urine RBC (0-3) /hpf Urine WBC (0-5) /hpf Ur Squamous Epith Cells (0-5) /hpf Hyaline Casts (0-3) /lpf Urine Mucus (Occasional) /lpf Micro UA Comment Ur Microscopic Review Urine Culture Comments 08/07/18 08/07/18 Range/Units 21:00 21:05 WBC (4.0-11.0) th/mm3 RBC (4.00-5.30) mil/mm3 Hgb (11.6-15.3) gm/dL Hct (35.0-46.0) % MCV (80.0-100.0) fL MCH (27.0-34.0) pg MCHC (32.0-36.0) % RDW (11.6-17.2) % Plt Count (150-450) th/mm3 MPV (7.0-11.0) fL Neut % (Auto) (16.0-70.0) % Lymph % (Auto) (9.0-44.0) % Bell % (Auto) (0.0-8.0) % Eos % (Auto) (0.0-4.0) % Baso % (Auto) (0.0-2.0) % Neut # (Auto) (1.8-7.7) th/mm3 Lymph # (Auto) (1.0-4.8) th/mm3 Bell # (Auto) (0.0-0.9) th/mm3 Eos # (Auto) (0.0-0.4) th/mm3 Baso # (Auto) (0.0-0.2) th/mm3 WBC Differential Differential Comment PT 10.4 (9.8-11.6) sec INR 1.0 Ratio APTT 25.5 (23.4-31.7) sec D-Dimer Quant (PE/DVT) 0.38 Sodium (136-145) meq/L Potassium (3.5-5.1) meq/L Chloride (98-107) meq/L Carbon Dioxide (21.0-32.0) meq/L Anion Gap (5-15) meq/L BUN (7-18) mg/dL Creatinine (0.50-1.00) mg/dL Estimated GFR (>89) mL/min Random Glucose (74-106) mg/dL Calcium (8.5-10.1) mg/dL Total Bilirubin (0.2-1.0) mg/dL AST (15-37) U/L ALT (10-53) U/L Alkaline Phosphatase (45-117) U/L Total Creatine Kinase (26-192) U/L CK-MB (CK-2) (0.5-3.6) ng/mL CK-MB (CK-2) % (0.0-4.0) % Troponin I (0.02-0.05) ng/mL Total Protein (6.4-8.2) g/dL Albumin (3.4-5.0) g/dL Urine Color Straw (Yellw/Straw) Urine Clarity Clear (Clear) Urine pH 6.0 (5.0-8.5) Ur Specific Kiln 1.005 (1.002-1.035) Urine Protein Negative (Neg-Trace) mg/dL Urine Glucose (UA) Negative (Negative) mg/dL Urine Ketones Negative (Negative) mg/dL Urine Occult Blood Small H (Negative) Urine Nitrate Negative (Negative) Urine Bilirubin Negative (Negative) Urine Urobilinogen Less than 2 (Less than 2) mg/dL Ur Leukocyte Esterase Negative (Negative) Urine RBC 1 (0-3) /hpf Urine WBC Less than 1 (0-5) /hpf Ur Squamous Epith Cells <1 (0-5) /hpf Hyaline Casts 1 (0-3) /lpf Urine Mucus Few H (Occasional) /lpf Micro UA Comment Culture not ind Ur Microscopic Review Not Reportable Urine Culture Comments Culture not ind Imaging Data Attestation: I personally reviewed and interpreted this imaging study as follows : Radiologist's impression: Chest X-Ray 08/07/18 20:01 CONCLUSION: 1. Minimal bibasilar patchy airspace opacities, presumably atelectasis. Formal PA and lateral views of the chest may be obtained if there is continued clinical concern. Discharge Plan Discharge Disposition Patient Disposition: ED Admit(ED Internal Use Only) Discharge Details Diagnosis: Chest pain Physicians Team ED Provider: Delfin Corcoran Primary Care Provider: NON STAFF,PROVIDER Rxs /Orders / Referrals /Forms Prescriptions: No Action amlodipine 10 mg Tablet 10 mg PO DAILY RF: 0 atorvastatin 20 mg Tablet 20 mg PO HS RF: 0 hydrochlorothiazide 25 mg Tablet 25 mg PO DAILY RF: 0 baclofen 10 mg tablet 10 mg PO TID Qty: 21 RF: 0 atenolol 25 mg Tablet 25 mg PO DAILY RF: 0 Discharge Instructions Patient Printed Instructions: Chest Pain (ED) Discharge Interventions Interventions: Vital Signs Last Done: 08/07/18 20:11 Status ED Status: With Doctor
--- NOTE | 2018-08-07 20:26 | XR ---
EXAM DATE: 08/07/2018 8:15 PM EST AGE/SEX: 58 years / Female INDICATIONS: Chest pain CLINICAL DATA: This is the patient's initial encounter. Patient reports that signs and symptoms have been present for 1 day and indicates a pain score of 0/10. MEDICAL/SURGICAL HISTORY: Hypertension. None. COMPARISON: [facility] [place], CHEST SINGLE AP, 01/31/2018. . FINDINGS: Minimal bibasilar patchy airspace opacities. Cardiac silhouette is in the upper limits of normal give n portable technique. Remainder of exam is unchanged. CONCLUSION: 1. Minimal bibasilar patchy airspace opacities, presumably atelectasis. Formal PA and lateral views of the chest may be obtained if there is continued clinical concern. Electronically signed by: Matt Garcia MD Board Certified Radiologist 08/07/2018 8:25 PM EST
[2018-08-07 21:27] LABS: Baso % (Auto) 0.5 % (0.0-2.0); Eos # (Auto) 0.1 th/mm3 (0.0-0.4); Eos % (Auto) 2.1 % (0.0-4.0); Hematocrit 39.6 % (35.0-46.0); Hemoglobin 13.1 gm/dL (11.6-15.3); Lymph # (Auto) 1.6 th/mm3 (1.0-4.8); Lymph % (Auto) 37.2 % (9.0-44.0); Mean Corpuscular Hemoglobin 30.8 pg (27.0-34.0); Mean Corpuscular Volume 93.2 fL (80.0-100.0); Mono # (Auto) 0.4 th/mm3 (0.0-0.9); Mono % (Auto) 8.5 % (0.0-8.0); Neut # (Auto) 2.2 th/mm3 (1.8-7.7); Neut % (Auto) 51.7 % (16.0-70.0); Platelet Count 171 th/mm3 (150-450); Red Blood Count 4.25 mil/mm3 (4.00-5.30); Red Cell Distribution Width 14.6 % (11.6-17.2); White Blood Count 4.3 th/mm3 (4.0-11.0)
[2018-08-07 21:37] LABS: Bilirubin,Urine Negative (Negative); Clarity,Urine Clear (Clear); Color,Urine Straw (Yellw/Straw); Glucose,Urine (UA) Negative (Negative); Hyaline Casts,Urine 1 /lpf (0-3); Leukocyte Esterase,Urine Negative (Negative); Mucus,Urine Few /lpf (Occasional); Nitrite,Urine Negative (Negative); Specific Gravity,Urine 1.005 (1.002-1.035); Squamous Epithelial Cell,Urine <1 /hpf (0-5)
[2018-08-07 21:40] LABS: Activated Partial Thrombo Time 25.5 sec (23.4-31.7); Prothrombin Time 10.4 sec (9.8-11.6)
[2018-08-07 21:42] LABS: D-Dimer 0.38 mg/L FEU (0.00-0.50)
[2018-08-07 21:55] LABS: Anion Gap 5 meq/L (5-15); Aspartate Aminotransferase 22 U/L (15-37); Blood Urea Nitrogen 9 mg/dL (7-18); Calcium 8.5 mg/dL (8.5-10.1); Carbon Dioxide 28.1 meq/L (21.0-32.0); Chloride 107 meq/L (98-107); Glomerular Filtration Rate 72 mL/min (>89); Glucose,Random 99 mg/dL (74-106); Potassium 3.3 meq/L (3.5-5.1); Sodium 140 meq/L (136-145)
[2018-08-07 21:57] LABS: Alanine Aminotransferase 32 U/L (10-53)
[2018-08-07 22:01] LABS: Alkaline Phosphatase 109 U/L (45-117); Creatine Kinase 256 U/L (26-192); Total Protein 8.1 g/dL (6.4-8.2)
[2018-08-07 22:13] LABS: CKMB Percent 0.5 % (0.0-4.0); Creatine Kinase MB 1.4 ng/mL (0.5-3.6)
[2018-08-07] MEDS ORDERED: Acetaminophen 500 MG Tablet PO PRN (22:49)
[2018-08-07 23:53] LABS: Creatine Kinase 207 U/L (26-192)
[2018-08-08 00:05] LABS: CKMB Percent 0.6 % (0.0-4.0); Creatine Kinase MB 1.2 ng/mL (0.5-3.6)
[2018-08-08 02:28] LABS: Creatine Kinase 188 U/L (26-192)
[2018-08-08] MEDS ORDERED: Regadenoson Inj 0.4 MG/5 ML Syringe IV.PUSH ONE (07:52)
[2018-08-08] MEDS ORDERED: amLODIPine 10 MG Tablet PO SCH (09:00)
[2018-08-08] MEDS ORDERED: Baclofen 10 MG Tablet PO SCH (09:00)
[2018-08-08] MEDS ORDERED: Atenolol 25 MG Tablet PO SCH (09:00)
[2018-08-08] MEDS ORDERED: hydroCHLOROthiazide 25 MG Tablet PO SCH (09:00)
--- NOTE | 2018-08-08 09:04 | P.HPCA ---
History of Present Illness Primary Care Physician: PROVIDER NON STAFF Chief Complaint: Chest pain History of Present Illness: This is a 58-year-old female history of hypertension and hyperlipidemia that presents to ED to evaluate for chest discomfort. Patient states she has been quite often and follows Dr. Ruiz last visit was about 4 months ago and last stress test was about a year ago. Her last stress at this facility was May 2017 and was nonischemic. When asked how often she gets the chest discomfort, she replies "not that often." Sometimes it happens with activity but usually just very random. The discomfort yesterday began around 8:00 last evening and began as a grabbing discomfort that then turned into a tightness that is still present but the tightness is not as bad. She recalls being short of breath but denies nausea or diaphoresis. Nothing in particular seemed to worsen or improve it. Past medical history: History of hypertension and hyperlipidemia. Denies diabetes and known CAD. Social history: She is a non-smoker. Family history: Denies family history of CAD. - Diagnosis (1) Chest pain (2) Hypertension (3) Hyperlipidemia Review of Systems General: Patient denies fevers, chills, and recent travel. HEENT: Patient denies headache, sore throat, difficulty swallowing. Cardiovascular: Has the chest discomfort as mentioned above. Denies sensation of heart beating rapidly or irregularly. No syncope. Respiratory: She was short of breath. Denies inspirational chest discomfort. Denies coughing wheezing or hemoptysis. GI: Patient denies nausea, vomiting, diarrhea, abdominal pain, bloody stools. Musculoskeletal: Patient denies joint pain or edema. Denies calf pain or edema. Neurovascular: Patient denies numbness, tingling, weakness in extremities. Denies headache. Endocrine: Denies polyuria and polydipsia. Hematologic: Denies easy bruising. Skin: Denies rash or itching. PMFSH - History History Provided By: Patient - Medical History Medical History: Medical History (Last Reviewed 08/07/18 @ 20:08 by Delfin Corcoran MD) Arthritis Hypercholesteremia Hypertension Psoriasis - Tobacco History Second Hand Smoke Exposure: No Smoking Status: Never smoker - Alcohol History How Often Do You Have a Drink Containing Alcohol: Monthly or less - Substance Use History Substance History: No History of Abuse - Travel History Recent Travel in the [facility] Within the Last 8 Weeks: No Recent Travel Out of the Country Within the Last 8 Weeks: No - Immunization History Tetanus Immunization: <5 Years Medications and Allergies Active Medications: Active Medications Acetaminophen (Tylenol) 500 mg PO Q4H PRN PRN Reason: HEADACHE Amlodipine Besylate (Norvasc) 10 mg PO DAILY JOAQUIN Atenolol (Tenormin) 25 mg PO DAILY JOAQUIN Atorvastatin Calcium (Lipitor) 20 mg PO HS JOAQUIN Baclofen (Lioresal) 10 mg PO TID JOAQUIN Hydrochlorothiazide (Hydrodiuril) 25 mg PO DAILY JOAQUIN Nitroglycerin (Nitrostat Sl) 0.4 mg SL Q5M PRN PRN Reason: CHEST PAIN Ondansetron HCl (Zofran Inj) 4 mg IV.PUSH Q6H PRN PRN Reason: NAUSEA Sodium Chloride (Ns Flush) 2 ml IV.FLUSH BID JOAQUIN Sodium Chloride (Ns Flush) 2 ml IV.FLUSH PRN PRN PRN Reason: FLUSH AFTER USING IV ACCESS Allergies Allergy/AdvReac Type Severity Reaction Status Date / Time No Known Allergies Allergy Verified 08/07/18 19:59 Home Medications Medication Instructions Recorded Confirmed Type amlodipine 10 mg PO DAILY 02/01/18 08/07/18 History atorvastatin 20 mg PO HS 02/01/18 08/07/18 History hydrochlorothiazide 25 mg PO DAILY 02/01/18 08/07/18 History atenolol 25 mg PO DAILY 08/07/18 08/07/18 History Exam Vital signs: Vital Signs 08/07/18 20:02 08/07/18 20:11 08/07/18 20:12 Temperature 98.4 F Pulse Rate 56 L Respiratory Rate 20 Blood Pressure 193/91 H 185/82 H Pulse Oximetry 97 98 08/07/18 22:58 08/08/18 04:00 Temperature Pulse Rate 64 62 Respiratory Rate 16 16 Blood Pressure 163/76 H 147/71 H Pulse Oximetry 98 98 Intake & Output 08/07/18 08/08/18 08/08/18 18:59 06:59 18:59 Weight 106.594 kg Narrative: GENERAL: This is a well-nourished, well-developed patient, in no apparent distress. Patient speaks in clear complete sentences. Patient is pleasant. HEENT: Head is atraumatic and normocephalic. Neck is supple without lymphadenopathy and trachea is midline. No JVD or carotid bruits. CARDIOVASCULAR: Regular rate and rhythm without murmurs, gallops, or rubs. RESPIRATORY: Clear to auscultation. Breath sounds equal bilaterally. No wheezes , rales, or rhonchi. Chest wall is tender. No use of accessory muscles. GASTROINTESTINAL: Abdomen is nontender, nondistended. Abdomen soft. No obvious pulsatile mass or bruit. No CVA tenderness. Strong femoral pulses bilaterally. Normal bowel sounds in all quadrants. MUSCULOSKELETAL: Patient is moving upper and lower extremities freely. No calf tenderness or edema, no Homans sign. Strong pulses in upper and lower extremities. NEUROLOGICAL: Patient is alert and oriented. Cranial nerves 2-12 are grossly intact. No focal deficits and speech is clear. SKIN: No rash and turgor is normal. Results 08/07/18 21:00 08/07/18 21:00 Cardiac Enzymes 08/07/18 08/07/18 08/08/18 Range/Units 21:00 23:10 01:55 AST 22 (15-37) U/L CK-MB (CK-2) 1.4 1.2 (0.5-3.6) ng/mL Troponin I Less than 0.02 L Less than 0.02 L Less than 0.02 L (0.02-0.05) ng/mL Coagulation 08/07/18 Range/Units 21:00 PT 10.4 (9.8-11.6) sec APTT 25.5 (23.4-31.7) sec CBC 08/07/18 Range/Units 21:00 WBC 4.3 (4.0-11.0) th/mm3 RBC 4.25 (4.00-5.30) mil/mm3 Hgb 13.1 (11.6-15.3) gm/dL Hct 39.6 (35.0-46.0) % Plt Count 171 (150-450) th/mm3 Neut # (Auto) 2.2 (1.8-7.7) th/mm3 Lymph # (Auto) 1.6 (1.0-4.8) th/mm3 [place] # (Auto) 0.4 (0.0-0.9) th/mm3 Eos # (Auto) 0.1 (0.0-0.4) th/mm3 Baso # (Auto) 0.0 (0.0-0.2) th/mm3 Comprehensive Metabolic Panel 08/07/18 Range/Units 21:00 Sodium 140 (136-145) meq/L Potassium 3.3 L (3.5-5.1) meq/L Chloride 107 (98-107) meq/L Carbon Dioxide 28.1 (21.0-32.0) meq/L BUN 9 (7-18) mg/dL Creatinine 0.97 (0.50-1.00) mg/dL Calcium 8.5 (8.5-10.1) mg/dL AST 22 (15-37) U/L ALT 32 (10-53) U/L Alkaline Phosphatase 109 (45-117) U/L Total Protein 8.1 (6.4-8.2) g/dL Albumin 4.0 (3.4-5.0) g/dL Intake and Output 08/07/18 08/08/18 08/08/18 22:59 06:59 14:59 Other: Weight 106.594 kg - Imaging and Cardiology Imaging: Impressions Chest X-Ray 08/07/18 20:01 CONCLUSION: 1. Minimal bibasilar patchy airspace opacities, presumably atelectasis. Formal PA and lateral views of the chest may be obtained if there is continued clinical concern. EKG interpretations - EKG EKG shows: sinus rhythm (EKGs are sinus rhythm with nonspecific T wave changes.) Caprini VTE Risk Assessment Caprini VTE Risk Assessment: No/Low Risk (score <= 1) Caprini Risk Assessment Model: Point Value = 1 Point Value = 2 Point Value = 3 Point Value = 5 Age 41-60 Minor surgery BMI > 25 kg/m2 Swollen legs Varicose veins or History of unexplained or recurrent spontaneous Oral contraceptives or hormone replacement Sepsis (< 1 month) Serious lung disease, including pneumonia (< 1 month) Abnormal pulmonary function Acute myocardial infarction Congestive heart failure (< 1 month) History of inflammatory bowel disease Medical patient at bed rest Age 61-74 Arthroscopic surgery Major open surgery (> 45 min) Laparoscopic surgery (> 45 min) Malignancy Confined to bed (> 72 hours) Immobilizing plaster cast Central venous access Age >= 75 History of VTE Family history of VTE Factor V Leiden Prothrombin [id number] Lupus anticoagulant Anticardiolipin antibodies Elevated serum homocysteine Heparin-induced thrombocytopenia Other congenital or acquired thrombophilia Stroke (< 1 month) Elective arthroplasty Hip, pelvis, or leg fracture Acute spinal cord injury (< 1 month) Prophylaxis Regimen: Total Risk Factor Score Risk Level Prophylaxis Regimen 0-1 Low Early ambulation 2 Moderate Order ONE of the following: *Sequential Compression Device (SCD) *Heparin 5000 units SQ BID 3-4 Higher Order ONE of the following medications: *Heparin 5000 units SQ TID *Enoxaparin/Lovenox 40 mg SQ daily (WT < 150 kg, CrCl > 30 mL/min) *Enoxaparin/Lovenox 30 mg SQ daily (WT < 150 kg, CrCl > 10-29 mL/min) *Enoxaparin/Lovenox 30 mg SQ BID (WT < 150 kg, CrCl > 30 mL/min) AND/OR *Sequential Compression Device (SCD) 5 or more Highest Order ONE of the following medications: *Heparin 5000 units SQ TID (Preferred with Epidurals) *Enoxaparin/Lovenox 40 mg SQ daily (WT < 150 kg, CrCl > 30 mL/min) *Enoxaparin/Lovenox 30 mg SQ daily (WT < 150 kg, CrCl > 10-29 mL/min) *Enoxaparin/Lovenox 30 mg SQ BID (WT < 150 kg, CrCl > 30 mL/min) AND *Sequential Compression Device (SCD) Assessment and Plan - Assessment (1) Chest pain Code(s): R07.9 - Chest pain, unspecified Status: Acute (2) Hypertension Code(s): I10 - Essential (primary) hypertension Status: Acute (3) Hyperlipidemia Code(s): E78.5 - Hyperlipidemia, unspecified Status: Acute - Plan * Chest pain: Patient has had serial cardiac enzymes and EKGs for ruling out purposes and has been seen by Dr. Aurelio Chew of cardiology in the chest pain center. He spoke with her radial drill operator as well and patient will have a Lexiscan at this time. She will be discharged home with instructions to follow- up with her PCP and radial drill operator if her stress test is nonischemic. Return to ED for interval issues. * Hypertension: Continue medication. * Hyperlipidemia: Continue medication. Patient is stable at this time. She is agreeable to this plan. (1) Chest pain Qualifiers: Chest pain type: unspecified Qualified Code(s): R07.9 - Chest pain, unspecified
[2018-08-08 11:01] VITALS: BP 155/76; PULSE 61; RESP 24; TEMP 97.6; O2SAT 97
--- NOTE | 2018-08-08 11:02 | NM ---
EXAM DATE: 08/08/2018 10:50 AM EST AGE/SEX: 58 years / Female INDICATIONS:Angina. . Left chest pain with dyspnea. CLINICAL DATA: This is the patient's initial encounter. Patient reports that signs and symptoms have been present for 1 day and indicates a pain score of 5/10. MEDICAL/SURGICAL HISTORY: Hypercholesterolemia. Hypertension. Arthritis. None. COMPARISON: No prior exams available for comparison. DOSE: 11 mCi Tc 99m Myoview at rest 35 mCi [id number] at stress 0.4 mg Lexiscan STRESS SYMPTOMS: Short of breath. EJECTION FRACTION: 50 % TECHNIQUE: The patient underwent pharmacologic stress with infusion of prescribed dose. Continuous ECG tracing was monitored during stress. Gated SPECT imaging was performed after stress and conventi onal SPECT imaging was performed at rest. The examination was performed on a SPECT/CT scanner, both attenuation and non-corrected datasets were reviewed. FINDINGS: Distribution: The maximum perfused segment at stress is in the anterolateral wall. Perfusion Study: The pattern of perfusion at stress demonstrates slight reduction in perfusion to t he lower anteroapical wall which is fixed without any significant ischemia . Gated Study: There are intact wall motion and wall thickening without hypokinetic or dyskinetic segm ents. The ejection fraction is calculated at 50%. RISK CATEGORY: Low (<1% Annual Mortality Rate) CONCLUSION: 1. No appreciable ischemia. Electronically signed by: Miguel Babcock MD Board Certified Radiologist 08/08/2018 11:01 AM EST
--- NOTE | 2018-08-08 18:21 | ECG ---
Date Performed: 08/08/2018 Time Performed: 01:51:03 PTAGE: 58 years EKG: SINUS BRADYCARDIA WITH SINUS ARRHYTHMIA VOLTAGE CRITERIA FOR LVH Since the previous tracing , no significant change noted ABNORMAL ECG PREVIOUS TRACING : 08/07/2018 23.07 DOCTOR: Stuart Valenzuela Interpretating Date/Time 08/08/2018 18:20:55
--- NOTE | 2018-08-08 18:21 | ECG ---
Date Performed: 08/07/2018 Time Performed: 23:07:49 PTAGE: 58 years EKG: SINUS BRADYCARDIA WITH SINUS ARRHYTHMIA POSSIBLE LEFT ATRIAL ENLARGEMENT POSSIBLE LEFT VENT RICULAR HYPERTROPHY NONSPECIFIC T-WAVE ABNORMALITY Since the previous tracing, no significant change noted ABNORMAL ECG PREVIOUS TRACING : 08/07/2018 19.47 DOCTOR: Stuart Valenzuela Interpretating Date/Time 08/08/2018 18:20:45
--- NOTE | 2018-08-08 18:21 | ECG ---
Date Performed: 08/07/2018 Time Performed: 19:47:32 PTAGE: 58 years EKG: SINUS BRADYCARDIA VOLTAGE CRITERIA FOR LVH NONSPECIFIC T-WAVE ABNORMALITY Compared to previ ous tracing, sinus rate is slower ABNORMAL ECG NO PREVIOUS TRACING DOCTOR: Stuart Valenzuela Interpretating Date/Time 08/08/2018 18:20:35
--- NOTE | 2018-08-09 14:51 | TR ---
Date Performed: 08/08/2018 Time Performed: 09:41:55 DOCTOR: Fran Zavaleta DRUG LIST: CLINICAL HISTORY: ANGINA CHEST PAIN REASON FOR TEST: REASON FOR ENDING: OBSERVATION: CONCLUSION: COMMENTS: Lexiscan stress test was performed under standard four minute protocol. Radionuclide was injected one minute prior to ending the test. No electrocardiographic abormalities were present t o suggest ischemia. Nuclear imaging and interpretation are pending.
== END 2018-08-08 12:30 | disposition home or self-care (01) ==
LOC: NEPD 19:40 → NEDA 19:40 → NEPFCDU 08-08 10:48
PROVIDERS: ADMIT Internal Medicine Cardiovascular Disease; ATTEND Internal Medicine Cardiovascular Disease
CPT/HCPCS: 71010; 71045; 78452; 80053; 81001; 82550; 82552; 84484; 85025; 85379; 85610; 85730; 93005; 93017; 99285; A9502; G0378; J2785; Q9969